=== PATIENT | female | born 1950 | race Caucasian/White ===

== ENCOUNTER 2019-03-19 11:35 | Emergency (ER) | payer OTHER ==
[~2019-03-19] VITALS: Ht 144.8 cm; Wt 74.8 kg
[~2019-03-19 11:35] MED LIST: ACETAMINOPHEN-1 EAC1 PO; ACYCLOVIR 400400 MG PO; ALBUTEROL2.5 MG/0.5 INH; ALBUTEROL2.5 MG/3 M INH; BROVANA15 MCG/2 M INH; LEVAQUIN 500 M500 M2 PO; MORPHINE 00.5 MG/1 M SUBLING; PREDNISONE 20 M20 MG PO; PREDNISONE10 MG PO; PROAIR HFA8.5 GM INH; PULMICORT0.5 MG/22 INH; SINGULAIR 10 MG10 M1 PO; TOBI IH; TOPROL XL25 MG PO; XANAX 0.5 MG0.5 MG PO; XANAX1 MG PO; ZADITOR5 M1
[2019-03-19] MEDS ORDERED: BREO ELLIPTA 11 EACH (11:47)
[2019-03-19] MEDS ORDERED: FLONASE 0.05%50 MCG NASAL (11:47)
[2019-03-19] MEDS ORDERED: ACID CONTROLLER20 MG PO (12:27)
[2019-03-19] MEDS ORDERED: BENADRYL25 MG PO (12:27)
[2019-03-19] MEDS ORDERED: PREDNISONE 10 M10 MG PO (12:27)
[2019-03-19] MEDS ORDERED: AZITHROMYCIN500 MG PO (12:28)
[2019-03-19 12:48] LABS: ABSOLUTE BASOPHILS 0.1 thou/uL (0.0-0.2); ABSOLUTE EOSINOPHILS 0.3 thou/uL (0.0-0.7); ABSOLUTE LYMPHOCYTES 2.4 thou/uL (0.8-5.3); ABSOLUTE MONOCYTES 0.8 thou/uL (0.0-1.2); ABSOLUTE NEUTROPHILS 4.8 thou/uL (1.6-8.1); BASOPHILS 0.7 %; EOSINOPHILS 3.1 %; HEMATOCRIT 38.6 % (37.0-47.0); HEMOGLOBIN 13.2 gm/dL (12.0-15.0); LYMPHOCYTES 28.7 %; MCH 29.2 pg (26.0-34.0); MCHC 34.3 g/dL (28.0-37.0); MCV 85.3 fL (80.0-100.0); MONOCYTES 9.2 %; MPV 7.1 fl. (7.2-11.1); NUCLEATED RBCS 0 /100WBC; PLATELET COUNT* 257 thou/uL (150-400); POLYS 58.3 %; RBC 4.53 mil/uL (4.20-5.00); RDW-CV 13.3 % (10.5-14.5); WBC 8.3 thou/uL (4.0-11.0)
[2019-03-19 12:57] LABS: ANION GAP 10 mmol/L (7-16); BUN 10 mg/dL (7-18); CALCIUM 8.8 mg/dL (8.5-10.1); CHLORIDE 106 mmol/L (98-107); CO2 24 mmol/L (21-32); CREATININE 0.8 mg/dL (0.6-1.3); GLUCOSE 126 mg/dL (70-99); POTASSIUM 3.9 mmol/L (3.5-5.1); SODIUM 140 mmol/L (136-145)
[2019-03-19 12:59] LABS: APTT 26.1 Seconds (25.0-31.3); PROTIME 10.1 Seconds (9.20-11.50)
[2019-03-19 13:07] LABS: TROPONIN-I LEVEL <0.06 ng/mL (<0.06)
[2019-03-19 13:31] VITALS: BP 137/56
--- NOTE | 2019-03-20 11:16 | EKG ---
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
== END 2019-03-19 13:31 | disposition home or self-care (01) ==
LOC: M.ERS 11:35
PROVIDERS: Nurse Practitioner Family
DX: J44.1 Chronic obstructive pulmonary disease with (acute) exacerbation (principal); D69.0 Allergic purpura; T78.40XA Allergy, unspecified, initial encounter; F41.9 Anxiety disorder, unspecified; F17.210 Nicotine dependence, cigarettes, uncomplicated; Z98.51 Tubal ligation status; Z90.49 Acquired absence of other specified parts of digestive tract; Z88.8 Allergy status to other drugs, medicaments and biological substances; X58.XXXA Exposure to other specified factors, initial encounter

== ENCOUNTER 2019-06-25 10:56 | Emergency (ER) | payer MEDICARE ==
[~2019-06-25] VITALS: Ht 144.8 cm; Wt 74.8 kg
[~2019-06-25 10:56] MED LIST changes: +ACID CONTROLLER20 MG PO; +AZITHROMYCIN500 MG PO; +BENADRYL25 MG PO; +BREO ELLIPTA 11 EACH; +FLONASE 0.05%50 MCG NASAL; +PREDNISONE 10 M10 MG PO
[2019-06-25] MEDS ORDERED: IPRAT-ALBUT 0.5-3 ML (11:14)
[2019-06-25] MEDS ORDERED: NORCO 5-325 TA1 EAC1 PO (11:31)
[2019-06-25] MEDS ORDERED: PREDNISONE 20 M20 M1 PO (12:48)
== END 2019-06-25 12:52 | disposition home or self-care (01) ==
LOC: M.ERS 10:56
DX: S20.212A Contusion of left front wall of thorax, initial encounter (principal); J44.9 Chronic obstructive pulmonary disease, unspecified; F41.9 Anxiety disorder, unspecified; Z90.89 Acquired absence of other organs; F17.210 Nicotine dependence, cigarettes, uncomplicated; Z88.6 Allergy status to analgesic agent; W18.39XA Other fall on same level, initial encounter; Y92.89 Other specified places as the place of occurrence of the external cause; Y93.89 Activity, other specified

== ENCOUNTER 2019-06-25 19:30 | Inpatient (IN) | payer MEDICARE ==
[~2019-06-25] VITALS: Ht 144.8 cm; Wt 75.7 kg
[~2019-06-25 19:30] MED LIST changes: -BREO ELLIPTA 11 EACH; +BREO ELLIPTA 11 EACH INH; +IPRAT-ALBUT 0.5-3 ML INH; +NORCO 5-325 TA1 EAC1 PO; +PREDNISONE 20 M20 M1 PO
[2019-06-25 19:32] VITALS: BP 180/83
[2019-06-25 20:48] LABS: HEMATOCRIT 40.9 % (37.0-47.0); MCH 28.8 pg (26.0-34.0); MCHC 34.2 g/dL (28.0-37.0); MCV 84.3 fL (80.0-100.0); NUCLEATED RBCS 0 /100WBC; PLATELET COUNT* 303 thou/uL (150-400); RBC 4.85 mil/uL (4.20-5.00); RDW-CV 13.3 % (10.5-14.5); WBC 16.8 thou/uL (4.0-11.0)
[2019-06-25 20:59] LABS: CALCIUM 8.6 mg/dL (8.5-10.1); CREATININE 0.7 mg/dL (0.6-1.3); POTASSIUM 4.1 mmol/L (3.5-5.1)
[2019-06-25 21:04] LABS: ALBUMIN 3.8 g/dL (3.4-5.0); TOTAL BILIRUBIN 0.5 mg/dL (<0.1-1.0); TOTAL PROTEIN 7.6 g/dL (6.4-8.2)
[2019-06-25 22:02] LABS: ABSOLUTE BASOPHILS 0.2 thou/uL (0.0-0.2); ABSOLUTE LYMPHOCYTES 0.3 thou/uL (0.8-5.3); ABSOLUTE MONOCYTES 0.5 thou/uL (0.0-1.2); ABSOLUTE NEUTROPHILS 15.8 thou/uL (1.6-8.1)
[2019-06-25 22:03] LABS: PLATELET ESTIMATE ADEQUATE
[2019-06-25 22:33] VITALS: BP 152/78
[2019-06-26 01:25] LABS: URINE BILIRUBIN NEGATIVE (Negative); URINE BLOOD 1+ (Negative); URINE CLARITY CLEAR; URINE COLOR YELLOW; URINE GLUCOSE-RANDOM NEGATIVE (Negative); URINE KETONES 1+ (Negative); URINE LEUKOCYTES-REFLEX NEGATIVE (Negative); URINE NITRITE-REFLEX NEGATIVE (Negative); URINE PROTEIN 1+ (Negative); URINE SPECIFIC GRAVITY 1.025 (1.005-1.030); URINE UROBILINOGEN 0.2 E.U./dl (0.2-1.0)
[2019-06-26 01:53] LABS: CASTS None Seen /LPF (None Seen); SQUAMOUS 0-3 Few /LPF (0-3)
[2019-06-26 01:54] LABS: BACTERIA-REFLEX >30 Many /HPF (None Seen); CRYSTALS None Seen /LPF (None Seen); URINE RBC 0-2 Rare /HPF (0-2); URINE WBC-REFLEX 0-5 Rare /HPF (0-5)
--- NOTE | 2019-06-26 06:29 | NUR ---
RECEIVED REPORT AND ASSUMED CARE AT 2240. PT TRANSPORTED FROM ED TO ROOM 111. ADMISSION AND ASSESSMENT COMPLETED CHARTED. BED LOCKED IN LOWEST POSITION, CALL LIGHT WITHIN REACH. BED ALARM ON. MED REC COMPLETED.
[2019-06-26 08:08] VITALS: BP 161/71
--- NOTE | 2019-06-26 16:50 | NUR ---
PT A&Ox4. VITALS STABLE. IV PATENT. UP WITH 1 USING WALKER. ON 2LOX, ALSO ON OX AT HOME. PAIN PARTIALLY CONTROLLED WITH FENTANYL AND TRAMADOL. TRANSDERM PATCH BEHIND RIGHT EAR FOR NAUSEA. ENCOURAGED TO SIT UP IN CHAIR AND IN BED, REFUSES AT TIMES. CALL LIGHT WITHIN REACH. FALL PRECAUTIONS IN PLACE. WILL CONTINUE TO MONITOR.
[2019-06-26 17:13] VITALS: BP 158/76
[2019-06-26 21:05] VITALS: BP 164/73
[2019-06-27 00:35] VITALS: BP 154/65
[2019-06-27 02:06] LABS: GLYCOHEMOGLOBIN (HGB A1C) 5.2 % (4.8-5.6)
--- NOTE | 2019-06-27 05:12 | NUR ---
VSS ON 2L. MEDS GIVEN ORDERED. PAIN MANAGED WITH FENTANYL AND SCHEDULED TRAMADOL. PT DIDNT WANT TO TAKE NORCO BECAUSE IT MAKES HER SICK TO HER STOMACH SHE SAID. BENEDRYL GIVEN FOR SLEEP PER PT REQUEST. UP TO BSC WITH MODERATE ASSIST. HOURLY ROUNDS COMPLETED. WILL CONTINUE TO MONITOR.
[2019-06-27 07:40] VITALS: BP 157/86
--- NOTE | 2019-06-27 16:52 | NUR ---
cm completed assessment to discuss d/c planning. pt lives w/dtr, Mohini. pt states Mohini is unemployed, so she is c/g for pt and helps w/adls. pt has walker, but only uses if late at night and pt "stays up past my bedtime." pt has used hh in the past, but has no recollection of which agency. pt has no hx w/snf. pt has good support at home. cm will cont to follow to help as needed.
--- NOTE | 2019-06-27 17:39 | NUR ---
PT REMIANED ALERT AND ORIENTED. PAIN MEDS GIVEN ORDERED. PT UP FOR MEALS AND REQUESTED. FALL RISK PRECAUTIONS IN PLACE. HOURLY ROUNDING COMPLETED. WILL CONTINUE TO MONITOR.
[2019-06-27 20:00] VITALS: BP 143/69
--- NOTE | 2019-06-28 04:41 | NUR ---
A&O X 4, FORGETFUL AT TIMES. PT ON 2L O2 BY NC. MEDS GIVEN ORDERED. PAIN PARTIALLY CONTROLLED WITH NORCO AND SCHEDULED TRAMADOL. FLEXERIL GIVEN PER PT REQUEST FOR SPASMS. UP TO BSC WITH MODERATE ASSIST. HOURLY ROUNDS COMPLETED. WILL CONTINUE TO MONITOR.
[2019-06-28 05:17] LABS: HEMATOCRIT 36.9 % (37.0-47.0); HEMOGLOBIN 12.5 gm/dL (12.0-15.0); MCH 28.9 pg (26.0-34.0); MCV 85.1 fL (80.0-100.0); MPV 7.4 fl. (7.2-11.1); RBC 4.33 mil/uL (4.20-5.00); RDW-CV 13.4 % (10.5-14.5); WBC 8.4 thou/uL (4.0-11.0)
[2019-06-28 05:52] LABS: CALCIUM 8.9 mg/dL (8.5-10.1); CREATININE 0.6 mg/dL (0.6-1.3); POTASSIUM 3.9 mmol/L (3.5-5.1)
[2019-06-28 07:25] VITALS: BP 184/101
--- NOTE | 2019-06-28 17:43 | NUR ---
PT ALERT AND ORIENTED AND FORGETFUL. PT HALLUCINATING TOWARDS END OF SHIFT. PAIN MEDS GIVEN ORDERED. FALL RISK PRECAUTIONS IN PLACE. HOURLY ROUNDING COMPLETED. WILL CONTINUE TO MONITOR.
[2019-06-28 21:00] VITALS: BP 157/88
--- NOTE | 2019-06-29 05:03 | NUR ---
PT A&O X 3-4, CONFUSED AT TIMES. MEDS GIVEN ORDERED. PT ON 2L O2 BY NC, Q4H BREATHING TREATMENT. PAIN MANAGED WITH TRAMADOL. UP TO BSC WITH MINIMUM ASSIST. HOURLY ROUNDING COMPLETED. WILL CONTINUE TO MONITOR.
[2019-06-29 09:15] VITALS: BP 172/92
[2019-06-29 16:00] VITALS: BP 178/77
--- NOTE | 2019-06-29 16:18 | NUR ---
CALLED DAUGHTER,JN,EARLIER TO SEE IF SHE FELT COMFORTABLE TAKING CARE OF HER MOM WHEN SHE CAME HOME. OFFEREDED HER SNF BUT DID TELL HER PTS PAIN SEEMED TO BE BETTER AND WALKED 120 FT WITH THERAPY TODAY. SHE WANTED ME TO CALL PTS MARGARET MURPHY. SHE IS HER DPOA AND LIVES 2 DOORS DOWN FROM PT.AND PTS DAUGHTER. HAD TO LEAVE FOR MARGARET.
--- NOTE | 2019-06-29 19:00 | NUR ---
PATIENT ALERT AND ORIENTED TO SELF AND PLACE THIS AM. COOPERATIVE W/ ASSESS AND CARES. BECOMES MORE WHEEZY AND DISORIENTED TOWARDS EVENING. PATIENT HAVING HALLUCINATIONS OF PEOPLE WHO AREN'T THERE. DR NOTIFIED, ORDERS REC'D. O2 2L/NC. IV SITE NOTED WNL. PATIENT RESTING IN BED AT THIS TIME. BED ALARM ON. CALL LIGHT IN REACH. PERSONAL BELONGINGS WITHIN REACH. DTR AND GRANDDTR IN TO SEE PATIENT THIS AFTERNOON, STATE PATIENT HAS NEVER BEEN THIS CONFUSED BEFORE. HRLY ROUNDS DONE. ~TJRN
[2019-06-29 20:30] VITALS: BP 163/80
[2019-06-29 20:35] LABS: PCO2 42.9 mmHg (35.0-45.0); PO2 76.2 mmHg (75.0-100.0); pH 7.428 (7.340-7.450)
--- NOTE | 2019-06-29 21:52 | NUR ---
ABG TEST RESULTS 20:37 UNREMARKABLE. PT HAS 2L-NC AND RESPIRATORY HAS GIVEN SCHEDULED ALBUTEROL/WILL MONITOR O2 CLOSELY
--- NOTE | 2019-06-30 05:50 | NUR ---
PATIENT RECEIVED SCHEDULED BREATHING TREATMENTS AND TRAMADOL. INCREASED CONFUSION THROUGHOUT SHIFT. RESPIRATORY SAW Q3 AND WE ENCOURAGED USE OF INCENTIVE SPIROMETER BUT WITH THE CONFUSION SHE WAS NOT ABLE TO RESPOND. ABG TEST AND XRAY SHOWS NO ACUTE CHANGES BUT THE IMAGE OF THE XRAY DID SHOW SOME FLUID BUILD UP ON LEFT LUNG. PATIENT ABLE TO AMBULATE TO COMMODE WITH ASSISTANCE. SHE IS FORGETFUL AND CONFUSED AND HAS TO BE REORIENTED OFTEN. SHE DID NOT SLEEP MUCH THROUGH THE EVENING. WHEEZING HAS INCREASED WELL. SHE WAS CHECKED 2-3 TIMES PER HOUR AND WE MADE SURE HER O2 REMAINED ON AT 2L.
[2019-06-30 09:00] VITALS: BP 163/75
--- NOTE | 2019-06-30 10:04 | NUR ---
PATIENT ESCORTED OFF UNIT PER BED W/ O2/NC AND IV ANTIBIOTICS INFUSING, TO TELE. REPORT GIVEN TO LEAD SALES CONSULTANT. PATIENT CONTINUES TO HAVE INCREASED CONFUSION AND HALLUCINATIONS. FAMILY MEMBERS NOTIFIED OF POC. FAMILY AGREEABLE TO POC. ~TJRN
[2019-06-30 10:10] VITALS: BP 168/88
--- NOTE | 2019-06-30 10:49 | NUR ---
RECEIVED REPORT FROM SHAWNA IN [facility]. PT ARRIVED TO TELE FLOOR AROUND 1010, ASSUMED CARE. FLATWORK ASSEMBLER PLACED TRACING SR. VITALS CHARTED. PT A BIT TACHYPNEIC; WHEEZING THROUGHOUT AND CONGESTED. DR GONZALES IN ROOM, PLAN IS TO START BIPAP. THIS RN AGREES WITH THE ASSESSMENT AND CHARTING OF SHAWNA FIELD. PT AWAKE, ALERT, ORIENTED TO SELF, MONTH AND YEAR ONLY. PT REPORTS THAT SHE IS HALLUCINATING. PT IS IMPULSIVE. BED ALARM AND FALL PRECAUTIONS IN PLACE. HOURLY ROUNDING PERFORMED. CALL LIGHT IS WITHIN REACH. WCTM.
[2019-06-30 11:24] LABS: BE 1.6 mmol/L (-2 to +3); pH 7.416 (7.340-7.450)
[2019-06-30 11:55] LABS: PO2 219.5 mmHg (75.0-100.0)
[2019-06-30 12:28] VITALS: BP 185/93
[2019-06-30 12:28] LABS: CALCIUM 8.8 mg/dL (8.5-10.1); CREATININE 0.8 mg/dL (0.6-1.3)
[2019-06-30 16:00] VITALS: BP 166/75
[2019-06-30 19:20] VITALS: BP 148/78
[2019-07-01] VITALS: BP 157/82
--- NOTE | 2019-07-01 01:18 | NUR ---
INITAL ASSESMENT COMPLETED AT 0. PT CONFUSED, RESTLESS AND IMPULSIVE. BED ALARMING CONTINUALLY. PT UNABLE TO UNDERSTAND OR REMEMBER INSTRUCTIONS. PT SEEING THINGS THAT ARE NOT PRESENT. RECIEVED ORDER FOR ONE TO ONE SITTER AT BEDSIDE FOR PT SAFETY. TECH IN ROOM WITH PT AT BEDSIDE.
[2019-07-01 04:00] VITALS: BP 169/88
[2019-07-01 08:30] VITALS: BP 169/64
[2019-07-01 12:11] VITALS: BP 158/84
[2019-07-01 18:19] LABS: URINE BILIRUBIN NEGATIVE (Negative); URINE BLOOD TRACE (Negative); URINE CLARITY CLEAR; URINE COLOR YELLOW; URINE GLUCOSE-RANDOM NEGATIVE (Negative); URINE KETONES NEGATIVE (Negative); URINE LEUKOCYTES-REFLEX NEGATIVE (Negative); URINE NITRITE-REFLEX NEGATIVE (Negative); URINE PROTEIN NEGATIVE (Negative); URINE SPECIFIC GRAVITY >= 1.030 (1.005-1.030); URINE UROBILINOGEN 0.2 E.U./dl (0.2-1.0)
--- NOTE | 2019-07-01 19:30 | CON ---
[address] [address] CONSULTATION Name: KENDRA GARCIA Room: [address] IN M.R.#: [id number] Admission: 06/25/19 Attend Phys: Chandrakant Zendejas MD Discharge: Date of : 48 Report #: [id number] THIS REPORT FOR: //name// CC: Chandrakant Zendejas [facility] physician/PCP DATE OF SERVICE: 06/30/2019 I was asked to see this 68-year-old lady for acute respiratory failure. HISTORY OF PRESENT ILLNESS: She does have history of 97-afop-olyu smoking, continues to smoke a few cigarettes per day. She is not on oxygen, but she states that she has been on BiPAP, which was started by [facility]. She has never had a sleep study. She does use her BiPAP at night with oxygen. She is not on oxygen during day. She fell on 06/25, presented to the Emergency Room, had a CT of the chest done, which did show minimally displaced fractures involving the lateral left 6th, 7th and 8th ribs. She presented to the Emergency Room on 06/28 with increased shortness of breath, wheezing, back pain. She was in rehab was transferred to telemetry today. She has had increased shortness of breath and wheezing. She has cough with some sputum production. She has gastroesophageal reflux symptoms and nasal congestion. PAST MEDICAL HISTORY: COPD, suspect she has severe COPD, that is why she is on BiPAP, obstructive sleep apnea-hypopnea syndrome, rib fracture as mentioned as above, status post recent fall and anxiety. ALLERGIES: LORAZEPAM. MEDICATIONS: Currently, she is on azithromycin, Rocephin, Solu-Medrol 62.5 mg b.i.d., metoprolol, Xopenex, DuoNeb, montelukast, Lovenox, Pulmicort, Brovana, Ultram, tramadol, Protonix, MiraLax. SOCIAL HISTORY: History of 28-xmza-mliq smoking, continues to smoke a few cigarettes per day. FAMILY HISTORY: Hypertension. REVIEW OF SYSTEMS: As mentioned as above, other systems otherwise negative. PHYSICAL EXAMINATION: GENERAL: This is an obese lady. VITAL SIGNS: Her O2 saturation on 2 liters of oxygen is 96%, respiratory rate 24, heart rate 90, blood pressure 168/88, temperature 36.3. HEENT: Normocephalic, atraumatic. Pupils equal, round, reactive to light. There is shallow oropharynx. Nose is clear. NECK: There is no lymphadenopathy [place] [address] CONSULTATION Name: KENDRA GARCIA Room: [address] M.R.#: [id number] Admission: 06/25/19 Attend Phys: Chandrakant Zendejas MD Discharge: Date of : 48 Report #: [id number] CARDIOVASCULAR: Regular rate and rhythm. PMI is nondisplaced. CHEST: On inspection, she appears tachypneic. She has bilateral end expiratory wheezing, a few bibasilar crackles, dullness at the bases. ABDOMEN: Soft. Bowel sounds are good. There is no mass. EXTREMITIES: There is no edema. LYMPHATICS: There is no lymphadenopathy. NEUROLOGIC: She is alert and oriented. SKIN: Chronic changes. LABORATORY DATA: I reviewed the following lab data: CT of the chest as mentioned as above. Chest x-ray done last night did not show infiltrate noted on 06/25, her WBC was 16.8. On admission, WBC 8.4, hemoglobin 12.5, platelet 265. Her ABG on 06/29, pH 7.42, pCO2 of 42, pO2 of 76 on 2 liters of oxygen. On 06/28, sodium 139, potassium 2.9, chloride 102, CO2 of 27, glucose 170, BUN 10, creatinine 0.6. Lactic acid 1.7. Troponin less than 0.06. BNP 52. IMPRESSION: 1. Acute respiratory failure secondary to acute exacerbation of chronic obstructive pulmonary disease, acute bronchitis versus others. 2. Acute exacerbation of chronic obstructive pulmonary disease. 3. Acute bronchitis. 4. Status post fall with rib fractures. 5. Obstructive sleep apnea-hypopnea syndrome. 6. Obesity. PLAN AND RECOMMENDATIONS: 1. Titrate FiO2 to keep O2 saturation 91%. 2. Bronchodilator. 3. Inhaled corticosteroid. 4. I will increase Solu-Medrol to 62.5 mg every 8 hours. 5. Stat ABG now, then start BiPAP until her respiratory status is more stable. 6. Continue antibiotic. 7. I will do BMP and BNP. 8. Monitor respiratory status very closely. 9. The findings and recommendations were discussed with RN and the patient. I have answered all of the patient's questions. She understood and agreed to proceed with the plan. Thank you very much for allowing me to participate in care of this very nice lady. <ELECTRONICALLY SIGNED> By: Marely Chua MD 07/01/190 1105 0127Marely Chua MD /nt
[2019-07-01 19:40] LABS: CALCIUM 8.8 mg/dL (8.5-10.1); CREATININE 0.8 mg/dL (0.6-1.3)
[2019-07-01 20:00] VITALS: BP 163/71
--- NOTE | 2019-07-01 20:00 | NUR ---
ASSUSMED CARE OF PT APPROX 0730. PT CARE DISCUSSED WITH RESPIRATORY THIS MORNING. PT WAS ON BIPAP THIS MORING. PT WAS CONFUSED THIS SHIFT AND WAS HAVING HALLUCINATIONS. PT PLACED ON BIPAP WHILE SLEEPING THIS SHIFT. PTS FAMILY WAS IN THIS AFTERNOON AND WANTED TO DISCUSS PTS CARE. PTS FAMILY WAS UPSET WITH PT CARE AND WAS WANTING TO KNOW WHAT WAS BEING DONE FOR THE PT TO GET BETTER, CARE WAS DISCUSSED WITH FAMILY. FAMILY HAD COMPLAINTS ABOUT CARE TO RESPITORY AND SAID THEY WANTED THE PT TO BE TRANSFERED TO A DIFFERENT HOSPITAL. THE DR WAS NOTIFIED AND THE PTS FAMILY SPOKE TO THE DOCTOR VIA TELEPHONE. ORDERS WHERE PLACED FOR THE PT. PTS FAMILY HAD NO MORE COMPLAINTS AFTER SPEAKING TO THE DOCTOR. PT WAS STRAIGHT CATHED THIS EVENING FOR UA. PTS FAMILY BACK THIS EVENING WITH DINNER FOR THE PT. SAFTEY PRECAUTIONS UTILIZED AND HOURLY ROUNDED.
[2019-07-02 00:11] VITALS: BP 121/70; BP 173/76
[2019-07-02 03:56] VITALS: BP 122/56
[2019-07-02 05:16] LABS: HEMATOCRIT 35.4 % (37.0-47.0); HEMOGLOBIN 12.2 gm/dL (12.0-15.0); MCH 29.4 pg (26.0-34.0); MCHC 34.5 g/dL (28.0-37.0); MCV 85.3 fL (80.0-100.0); MPV 6.9 fl. (7.2-11.1); RBC 4.16 mil/uL (4.20-5.00); RDW-CV 13.4 % (10.5-14.5); WBC 8.1 thou/uL (4.0-11.0)
[2019-07-02 05:44] LABS: CALCIUM 8.2 mg/dL (8.5-10.1); CREATININE 0.7 mg/dL (0.6-1.3); MAGNESIUM 2.2 mg/dL (1.8-2.4); POTASSIUM 4.2 mmol/L (3.5-5.1)
--- NOTE | 2019-07-02 06:50 | NUR ---
ASSUMED CARE OF PT AFTER REPORT AT 1930. PT A&OX4. CONFUSED & FORGETFUL AT TIMES. PT WITH EPISODE OF VISUAL HALLUCINATION- SAW PEOPLE IN THE ROOM. PT ON O2 AT 2L NC/BIPAP WHEN SLEEPING. PT TRACING SR ON TELE. PT UP WITH 1 ASSIST TO BSC. PT COMPLAINED OF BACK PAIN-MEDS GIVEN PER AUG. PT ABLE TO SLEEP WELL ON BED. CALL LIGHT WITHIN REACH.
[2019-07-02 08:00] VITALS: BP 167/92
[2019-07-02 12:34] VITALS: BP 153/81
--- NOTE | 2019-07-02 15:49 | NUR ---
ASSUSSMED CARE OF PT APPROX 0730. REASSESSMENT COMPELTED CHARTED. MEDICATIONS GIVEN CHARTED. PT HAD A SHOWER THIS AM. LINENS CHANGED. PT ON BIPAP INTERMITTENTLY. PT FAMILY AT BEDSIDE THIS AM. PT UP TO BEDSIDE CAMODE WITH STAND BY ASSIST. THERAPY WORKED WITH PT THIS AFTERNOON. PT IN BED, SAFTEY PRECAUTIONS IN PLACE, HOURLY ROUNDING.
[2019-07-02 16:09] VITALS: BP 146/74
[2019-07-02 20:00] VITALS: BP 162/83
[2019-07-03] VITALS: BP 149/71
[2019-07-03 03:31] VITALS: BP 160/72
--- NOTE | 2019-07-03 06:21 | NUR ---
ASSUMED CARE OF PT AFTER REPORT AT 1930. PT A&OX2. NOT ORIENTED TO SELF & SITUATION, CONFUSED & FORGETFUL AT TIMES. PTS HAVING VISUAL HALLUCINATION. TRYING TO REACH SOMETHING IN THE AIR. PT ON O2 AT 2L NC/BIPAP WHEN SLEEPING. PT TRACING SR ON TELE. PT UP WITH 2 ASSIST TO BSC. PT COMPLAINED OF LEFT RIB PAIN-MEDS GIVEN PER AUG. PT ABLE TO SLEEP WELL ON BED. FALL PRECAUTIONS IN PLACE. CALL LIGHT WITHIN REACH.
[2019-07-03 12:15] VITALS: BP 132/58
--- NOTE | 2019-07-03 12:56 | NUR ---
Nutrition: Pt admitted with Lt rib FX. H/o COPD. Seen for LOS. Regular diet. Albumin 3.8. Low nutrition risk.
[2019-07-03 16:00] VITALS: BP 178/84
--- NOTE | 2019-07-03 19:15 | NUR ---
ASSUMED PT CARE AT 0700, PT A&O X3-4 WITH FORGETFULNESS, DELUSIONS, AND HALLUCINTAIONS AT TIME THOUGH PT IS AWARE SHE IS HAVING THEM. PT EDUCATED ON USING PILLOW FOR SPLINT TO FX RIBS WHEN MOVING/COUGHING, TOLERATING WELL. CONT ON IV ABTS, UP WITH ASSIST X1, VSS, REMAINS ON 2LPM VIA NC, LS DIMINISHED THROUGHOUT, ASSOCIATE JAVA DEVELOPER TRACING SINUS RHYTHM, FULL ASSESSMENT CHARTED, HOURLY ROUNDING COMPLETED.
[2019-07-03 20:00] VITALS: BP 147/68
[2019-07-04 00:18] VITALS: BP 136/77
[2019-07-04 04:32] VITALS: BP 151/87
--- NOTE | 2019-07-04 05:29 | NUR ---
ASSUMED CARE OF PT AFTER REPORT AT 1930. PT A&OX4. CONFUSED & FORGETFUL AT TIMES. VSS. PHYSICAL ASSESSMNENR COMPLETED AND CHARTED. PT ON O2 AT 2L NC/BIPAP WHEN SLEEPING. PT UP WITH 2 ASSIST TO BSC. PT COMPLAINED OF LEFT RIB PAIN-MEDS GIVEN PER AUG. PT ABLE TO SLEEP WELL ON BED. CALL LIGHT WITHIN REACH. FALL PREACUTIONS IN PLACE.
[2019-07-04 11:31] VITALS: BP 132/56
--- NOTE | 2019-07-04 11:37 | NUR ---
Spoke with Pt's granddtr/DPOA, family is leaning more towards taking Pt home with HH, family to discuss today and let CM know. Pt will have someone with her 24hrs/day and family is use to assisting with ADLs. Awaiting call back and decision regarding dispo. Following.
[2019-07-04 17:16] VITALS: BP 129/61
--- NOTE | 2019-07-04 18:42 | NUR ---
ASSUMED PT CARE AT 0700, PT A&O X3-4, IMPULSIVE AND FORGETFUL, PT CONT TO HAVE HALLUCINATIONS/DELUSIONS, VSS, REMAINS ON O2 AT 2LPM VIA NC, LS DIMINISHED WITH WHEEZING THROUGHOUT, GRAIN ELEVATOR CLERK TRACING SINUS RHYTHM, FULL ASSESSMENT CHARTED, HOURLY ROUNDING COMPLETED.
[2019-07-04 20:00] VITALS: BP 143/73
[2019-07-05 00:01] VITALS: BP 150/59
[2019-07-05 04:16] VITALS: BP 170/70
--- NOTE | 2019-07-05 05:53 | NUR ---
ASSUMED CARE FO PT AFTER REPORT AT 1930. PT A&OX4 BUT CONFUSED, IMPULSIVE AND RESTLESS. VSS. PHYSICAL ASSESSMENT COMPLETED AND CHARTED. PT ON O2 AT 2L NC. REFUSED BIPAP EVEN AFTER EDUCATION. PT WANTS TO GO HOME AND SMOKE. OFFERED NICOTINE PATCH BUT REFUSED. PT COMPLAINED OF LEFT RIB PAIN-MEDS GIVEN PER AUG. FALL PREACUTIONS IN PLACE. CALL LIGHT WITHIN REACH.
[2019-07-05 12:15] VITALS: BP 149/73
--- NOTE | 2019-07-05 13:01 | NUR ---
[facility] is now wanting Pt to go skilled. Faxed referral to [facility] and requested that they initiate auth if they are able to accept Pt. Pt medically stable to [facility].
[2019-07-05 16:00] VITALS: BP 144/64
--- NOTE | 2019-07-05 19:00 | NUR ---
ASSUMED PT CARE AT 0700, PT A&O X3, FORGETFUL AND VERY IMPULSIVE. PT CONT TO CLIMB OUT OF BED DISPITE EDUCATION ON FALLING AND USING CALL LIGHT. REMAINS ON RA, VSS, MED SURG STATUS. FAMILY NOTIFIED ON PTS BEHAVIOR, AGREED TO HAVE PT GO TO SNF FOR REHAB AND SAFETY. PT IS UP WITH ASSIST X1 SHE IS VERY UNSTEADY ON HER FEET, FULL ASSESSMENT CHARTED.
[2019-07-05 20:00] VITALS: BP 145/89
[2019-07-05 23:42] VITALS: BP 180/78
[2019-07-06 03:00] VITALS: BP 168/80
--- NOTE | 2019-07-06 06:01 | NUR ---
ASSUMED CARE OF PT AFTETR REPORT AT 1930. PT A&OX1. CONFUSED, FORGETFUL & IMPULSIVE. VSS. PHYSICAL ASSESSMENT COMLPETED AND CHARTED. PT ON O2 AT 2L NC. PT REFUSED BIPAP EVEN AFTER EDUCATION. PT UP WITH 1-2 ASSIST TO BSC. PT COMPLAINED OF LEFT RIB PAIN-MEDS GIVEN PER MAR. CALL LIGHT WITHIN REACH.
[2019-07-06 08:00] VITALS: BP 139/58
--- NOTE | 2019-07-06 08:31 | NUR ---
Faxed updated therapy notes to [facility], continue to await decision to accept and insurance auth
--- NOTE | 2019-07-06 13:47 | NUR ---
PT IS A/O X3 AND CONFUSED/FORGETFUL.PT IS HAVING VISUAL HALLUCINATIONS.VSS.MED-SURG STATUS.PT REMAINS ON 2L O2 NC.PT PROGRESSING TOWARDS GOALS.PAIN MANAGED WELL WITH PO MEDICATIONS.IV ANTIBIOTICS GIVEN.PT WORKED WITH PHYSICAL THERAPY AND SAT UP IN CHAIR.HOURLY ROUNDING COMPLETED FOR PT SAFETY.CALL LIGHT AND FALL PRECAUTIONS IN PLACE.WILL CONTINUE TO MONITOR.PT TO TRANSFER TO 314.REPORT CALLED TO UNIT.
--- NOTE | 2019-07-06 15:17 | NUR ---
PATIENT TRANSFERRED FROM [facility] TO ROOM 314. REPORT RECEIVED FROM RASHIDA CAMPOS. [address] AGREE WITH CHARTED AM ASSESSMENT. IV SL. NO COMPLAINTS AT THIS TIME. UP TO BSC WITH ASSISTANCE. BED ALARM ON FOR PATIENT SAFETY. CALL LIGHT WITHIN REACH.
[2019-07-06 16:37] LABS: HEMATOCRIT 36.4 % (37.0-47.0); HEMOGLOBIN 12.2 gm/dL (12.0-15.0); MCHC 33.6 g/dL (28.0-37.0); MCV 86.2 fL (80.0-100.0); MPV 7.3 fl. (7.2-11.1); NUCLEATED RBCS 0 /100WBC; PLATELET COUNT* 288 thou/uL (150-400); RBC 4.22 mil/uL (4.20-5.00); RDW-CV 13.5 % (10.5-14.5); WBC 11.1 thou/uL (4.0-11.0)
[2019-07-06 16:50] LABS: ALBUMIN 3.1 g/dL (3.4-5.0); CALCIUM 8.1 mg/dL (8.5-10.1); CREATININE 0.8 mg/dL (0.6-1.3); MAGNESIUM 2.1 mg/dL (1.8-2.4); POTASSIUM 5.3 mmol/L (3.5-5.1); TOTAL BILIRUBIN 0.5 mg/dL (<0.1-1.0); TOTAL PROTEIN 6.3 g/dL (6.4-8.2)
[2019-07-06 17:08] LABS: ABSOLUTE LYMPHOCYTES 1.3 thou/uL (0.8-5.3); ABSOLUTE MONOCYTES 0.2 thou/uL (0.0-1.2); ABSOLUTE NEUTROPHILS 9.5 thou/uL (1.6-8.1); PLATELET ESTIMATE ADEQUATE
[2019-07-06 17:49] LABS: ESR (SEDRATE) 8 mm/hr (0-30)
[2019-07-06 19:40] VITALS: BP 158/70
[2019-07-07 05:10] LABS: BE 3.8 mmol/L (-2 to +3); PCO2 41.9 mmHg (35.0-45.0); PO2 76.1 mmHg (75.0-100.0); pH 7.446 (7.340-7.450)
--- NOTE | 2019-07-07 06:23 | NUR ---
PT ORIENTED TO SELF. CONFUSED. FORGETFUL. MEDS GIVEN PER EMAR. VSS ON 2L NC. BIPAP AT HS. NONCOMPLIANT WITH BIPAP. DID NOT WAER IT UP TO AN HOUR THROUGH SHIFT. VISUAL HALLUCINATIONS PRESENT THIS SHIFT. PT WAS RESTLESS. SLEEP MEDS AND XANAX GIVEN THIS SHIFT. DID NOT SEEM TO HAVE ANY EFFECT ON PT. PT DC'D IV. BED CHANGE DONE TWICE. ABG OBTAINED THIS SHIFT. PH, PO2 AND PCO2 WITHIN NORMAL. FALL PRECAUTION IN PLACE. PT ATTEMPTED GETTING OUT OF BED SEVERAL TIMES THIS SHIFT. PER DR MALLOY, OK TO LEAVE OUT IV. CALL LIGHT WITHIN REACH. HOURLY ROUNDINGS MADE.
[2019-07-07 07:50] VITALS: BP 160/80
--- NOTE | 2019-07-07 12:30 | NUR ---
JAVI called and spoke with Thais in admissions at [facility] to follow up on status of pt referral and [facility] still waiting on insurance authorization.
[2019-07-07 16:00] VITALS: BP 172/87
[2019-07-07 16:01] VITALS: BP 172/87
--- NOTE | 2019-07-07 16:24 | NUR ---
NOISE HEARD IN THIS PT ROOM, ON INVESTIGATION PT FOUND ON FLOOR. RAILS UP AND BED ALARM ACTIVATED. CALL LIGHT IN REACH OF PT, BUT WAS NOT USED. WORK ORDER PLACED FOR BED ALARM NOT SOUNDING. PT STATES SHE WAS "SITTING ON THE BENCH". PT STATES SHE STRUCK POSTERIOR HEAD ON BEDSIDE TABLE. NO OBVIOUS DEFORMITIES/WOUNDS NOTED. PT DENIES PAIN. PT NOTES TENDERNESS TO BACK OF HEAD. PT ASSESSED AND VS STABLE. PT ASSISTED BCK TO BED. DR MALLOY NOTIFIED OF INCIDENT. REPORT COMPLETED AND PLACED TO PT CHART. PT NOW RESTS IN BED, CALL LIGHT IN REACH. BED ALARM REPAIRED AND ACTIVE. WILL CONTINUE TO MONITOR.
--- NOTE | 2019-07-07 17:02 | NUR ---
PT AWAKE AND ALERT TO SELF. VSS. DEJA RN PLACED IV TO RFA USING U/S. NO REDNESS/SWELLING AT SITE. PT UP TO RESTROOM SBA TO BEDSIDE COMMODE. CALL LIGHT IN REACH, PT RE-EDUCATED REGARDING USE OF CALL LIGHT FOR ASSISTANCE. PT CONTINUES TO "FORGET" AND ATTEMPTS TO GET UP UNASSISTED. FALL PRECAUTIONS IN PLACE FOR PT SAFETY. PT IS ACCUCHECK, INSULIN NOT INDICATED THIS SHIFT. PT REMAINS ON 2L BY NC. PT GRANDDAUGHTER CALLED THIS AFTERNOON TO CHECK IN. GRANDDGTR STATES PT PREFERS FOOD CUT UP SHE EATS WITH SPOON. PT TO DC TO SNF 07/08/2019. PT REMAINS ON FALL PRECAUTIONS WITH CALL LIGHT IN REACH, IN ROOM WITHIN VIEW OF NURSES STATION. WILL CONTINUE TO MONITOR.
[2019-07-07 23:21] VITALS: BP 149/68
--- NOTE | 2019-07-08 03:45 | NUR ---
PATIENT AWAKE MOST OF THE NIGHT CLIMBING OUT OF BED. PT UNABLE TO BE REDIRECTED. PT SAT IN CHAIR WITH WARM BLANKET AND CHAIR ALARM FOR APPROX 10 MINUTES THEN INSISTED ON LEAVING ROOM. PT PLACED IN W/CHAIR AND BROUGHT TO NURSES STATION. PT SAT WITH STAFF FOR APPROX 15 MIN THEN SAID SHE WAS 'READY TO LEAVE'. PT TAKEN BACK TO BED AND IS SLEEPING AT THIS TIME. PT WITH VISUAL HALLUCINATIONS. PT ON O2 @ 2 LITERS, HAS LOOSE COUGH. FREQUENTLY USED ITEMS AND CALL LIGHT WITHIN REACH. SIDERAILS UPX4 AND BED ALARM ON. FREQUENT OBSERVATIONS MADE. WILL CONTINUE TO MONITOR.
[2019-07-08 08:00] VITALS: BP 135/78
[2019-07-08] MEDS ORDERED: HUMALOG100 UNIT/1 SUBQ (13:50)
[2019-07-08] MEDS ORDERED: PREDNISONE 10 M10 MG PO (13:54)
[2019-07-08] MEDS ORDERED: LIDODERM1 EACH TOP (13:55)
[2019-07-08] MEDS ORDERED: ROCEPHIN 11 GM/1001 IV (13:56)
--- NOTE | 2019-07-08 14:02 | NUR ---
SPOKE TO ANA M AT [facility] RE TRANSFER TODAY. ANA M STATES SHE NEEDS PT MEDICARE NUMBER. ADMISSIONS CALLED FOR NUMBER. NUMBER WRITTEN ON FACE SHEET AND FAXED TO ANA M
--- NOTE | 2019-07-08 14:15 | NUR ---
SPOKE WITH ANA M IN ADMISSIONS. TRANSPORTATION SET UP FOR 1700. REPORT CALLED TO ORIN AT [facility]
[2019-07-08 17:02] VITALS: BP 149/68
[2019-07-08 18:03] VITALS: BP 112/59
== END 2019-07-08 17:20 | DRG 183 ==
LOC: M.ERS 19:30 → M.ORTHSURG 21:41 → M.2W 21:41 → M.TBA-ER 21:41 → M.ORTHSURG 22:43 → M.2W 06-30 10:11 → M.3W 07-06 14:18
PROVIDERS: Internal Medicine; Internal Medicine Pulmonary Disease; Physician Assistant; ADMIT Internal Medicine
PROC: 5A09357 Assistance with Respiratory Ventilation, Less than 24 Consecutive Hours, Continuous Positive Airway Pressure (ICD-10-PCS; principal; 2019-07-01)
PROC: 5A09357 Assistance with Respiratory Ventilation, Less than 24 Consecutive Hours, Continuous Positive Airway Pressure (ICD-10-PCS; 2019-07-02)
PROC: 5A09357 Assistance with Respiratory Ventilation, Less than 24 Consecutive Hours, Continuous Positive Airway Pressure (ICD-10-PCS; 2019-07-03)
PROC: 5A09357 Assistance with Respiratory Ventilation, Less than 24 Consecutive Hours, Continuous Positive Airway Pressure (ICD-10-PCS; 2019-07-04)
PROC: 5A09357 Assistance with Respiratory Ventilation, Less than 24 Consecutive Hours, Continuous Positive Airway Pressure (ICD-10-PCS; 2019-07-05)
PROC: 5A09357 Assistance with Respiratory Ventilation, Less than 24 Consecutive Hours, Continuous Positive Airway Pressure (ICD-10-PCS; 2019-07-06)
DX: S22.42XA Multiple fractures of ribs, left side, initial encounter for closed fracture (principal); J96.21 Acute and chronic respiratory failure with hypoxia; G92 Toxic encephalopathy; R65.11 Systemic inflammatory response syndrome (SIRS) of non-infectious origin with acute organ dysfunction; J44.1 Chronic obstructive pulmonary disease with (acute) exacerbation; E66.2 Morbid (severe) obesity with alveolar hypoventilation; J44.0 Chronic obstructive pulmonary disease with (acute) lower respiratory infection; F41.9 Anxiety disorder, unspecified; J20.9 Acute bronchitis, unspecified; T38.0X5A Adverse effect of glucocorticoids and synthetic analogues, initial encounter; F17.210 Nicotine dependence, cigarettes, uncomplicated; Z68.36 Body mass index [BMI] 36.0-36.9, adult; Z88.8 Allergy status to other drugs, medicaments and biological substances; W18.39XA Other fall on same level, initial encounter; Y93.89 Activity, other specified; Y92.098 Other place in other non-institutional residence as the place of occurrence of the external cause; Y99.8 Other external cause status

== ENCOUNTER 2020-06-27 17:32 | Emergency (ER) | payer MEDICARE ==
[~2020-06-27] VITALS: Ht 157.5 cm; Wt 84.8 kg
[~2020-06-27 17:32] MED LIST changes: +HUMALOG100 UNIT/1 SUBQ; +LIDODERM1 EACH TOP; +ROCEPHIN 11 GM/1001 IV
[2020-06-27 18:17] LABS: ABSOLUTE BASOPHILS 0.1 thou/uL (0.0-0.2); ABSOLUTE EOSINOPHILS 0.1 thou/uL (0.0-0.7); ABSOLUTE LYMPHOCYTES 2.4 thou/uL (0.8-5.3); ABSOLUTE NEUTROPHILS 7.7 thou/uL (1.6-8.1); EOSINOPHILS 0.8 %; HEMATOCRIT 38.5 % (37.0-47.0); HEMOGLOBIN 12.9 gm/dL (12.0-15.0); LYMPHOCYTES 21.3 %; MCH 28.9 pg (26.0-34.0); MCHC 33.5 g/dL (28.0-37.0); MCV 86.4 fL (80.0-100.0); MONOCYTES 9.1 %; MPV 7.1 fl. (7.2-11.1); NUCLEATED RBCS 0 /100WBC; PLATELET COUNT* 266 thou/uL (150-400); POLYS 67.8 %; RBC 4.46 mil/uL (4.20-5.00); WBC 11.3 thou/uL (4.0-11.0)
[2020-06-27 18:21] LABS: URINE BILIRUBIN NEGATIVE (Negative); URINE BLOOD 1+ (Negative); URINE CLARITY CLEAR; URINE COLOR YELLOW; URINE GLUCOSE-RANDOM NEGATIVE (Negative); URINE KETONES NEGATIVE (Negative); URINE LEUKOCYTES-REFLEX TRACE (Negative); URINE NITRITE-REFLEX NEGATIVE (Negative); URINE PROTEIN NEGATIVE (Negative); URINE SPECIFIC GRAVITY 1.025 (1.005-1.030); URINE UROBILINOGEN 0.2 E.U./dl (0.2-1.0)
[2020-06-27 18:42] LABS: SQUAMOUS >10 Many /LPF (0-3)
[2020-06-27 18:43] LABS: CALCIUM 9.2 mg/dL (8.5-10.1); CREATININE 0.7 mg/dL (0.6-1.3); POTASSIUM 4.2 mmol/L (3.5-5.1)
[2020-06-27 18:43] LABS: MUCUS 4-6 Moderate strn/LPF (None Seen); URINE WBC-REFLEX 6-15 Few /HPF (0-5)
[2020-06-27 18:44] LABS: CRYSTALS None Seen /LPF (None Seen); URINE RBC 0-2 Rare /HPF (0-2)
[2020-06-27 18:47] LABS: ALBUMIN 3.6 g/dL (3.4-5.0); TOTAL BILIRUBIN 0.2 mg/dL (<0.1-1.0); TOTAL PROTEIN 6.8 g/dL (6.4-8.2)
[2020-06-27] MEDS ORDERED: HYDROCODON-ACE1 EAC7 PO (20:19)
[2020-06-27] MEDS ORDERED: KEFLEX500 M1 PO (20:19)
[2020-06-27] MEDS ORDERED: PREDNISONE 20 M20 MG PO (21:03)
[2020-06-27] MEDS ORDERED: VISTARIL 25 MG25 M1 PO (21:03)
[2020-06-27 21:15] VITALS: BP 130/67
--- NOTE | 2020-06-28 12:09 | EKG ---
[place] [address] ELECTROCARDIOGRAM REPORT Name: JOSEKENDRA Blankenship Room: [facility]#: [id number] Admission: 06/27/20 Attend Phys: Discharge: 06/27/20 Date of : 48 Date of Service: 06/27/201751 Report #: [id number] THIS REPORT FOR: //name// [facility] ED Test Date: 2020-06-27 Test Time: 17:52:17 Pat Name: KENDRA GARCIA Department: Room: Gender: Estimator Binding: [facility] : 1950 Requested By: Patricio Vera Order Number: [id number] MD: Jeet Solis Measurements Intervals [place] Rate: 95 P: 75 MN: 137 QRS: 22 QRSD: 90 T: 36 QT: 342 QTc: 430 Interpretive Statements Sinus rhythm Probable left atrial enlargement Compared to ECG 03/19/2019 12:45:40 No significant changes Electronically Signed On 06-28-2020 12:09:40 PROFESSOR OF VISUAL ARTS by Jeet Solis [email or web address] <ELECTRONICALLY SIGNED> By: Jeet Solis MD, [facility] 06/28/20 8414 1752 1752 Jeet Solis MD, [facility] /EPI
== END 2020-06-27 21:17 | disposition home or self-care (01) ==
LOC: M.ERS 17:32
PROVIDERS: Physician Assistant
DX: S52.502A Unspecified fracture of the lower end of left radius, initial encounter for closed fracture (principal); Z20.828 Contact with and (suspected) exposure to other viral communicable diseases; S00.83XA Contusion of other part of head, initial encounter; N39.0 Urinary tract infection, site not specified; J44.1 Chronic obstructive pulmonary disease with (acute) exacerbation; F17.210 Nicotine dependence, cigarettes, uncomplicated; Z79.899 Other long term (current) drug therapy; Z88.8 Allergy status to other drugs, medicaments and biological substances; W18.39XA Other fall on same level, initial encounter; Y93.89 Activity, other specified; Y92.89 Other specified places as the place of occurrence of the external cause; Y99.8 Other external cause status

== ENCOUNTER 2020-07-29 17:57 | Inpatient (IN) | payer MEDICARE ==
[~2020-07-29] VITALS: Ht 144.8 cm; Wt 77.1 kg
[~2020-07-29 17:57] MED LIST changes: +HYDROCODON-ACE1 EAC7 PO; +KEFLEX500 M1 PO; +VISTARIL 25 MG25 M1 PO
[2020-07-29 18:00] VITALS: BP 150/97
[2020-07-29 18:50] LABS: ABSOLUTE BASOPHILS 0.1 thou/uL (0.0-0.2); ABSOLUTE EOSINOPHILS 0.2 thou/uL (0.0-0.7); ABSOLUTE LYMPHOCYTES 2.2 thou/uL (0.8-5.3); ABSOLUTE NEUTROPHILS 8.2 thou/uL (1.6-8.1); BASOPHILS 0.8 %; EOSINOPHILS 1.9 %; HEMATOCRIT 39.2 % (37.0-47.0); LYMPHOCYTES 19.2 %; MCH 28.4 pg (26.0-34.0); MCHC 33.2 g/dL (28.0-37.0); MCV 85.8 fL (80.0-100.0); MONOCYTES 8.3 %; MPV 6.8 fl. (7.2-11.1); NUCLEATED RBCS 0 /100WBC; PLATELET COUNT* 261 thou/uL (150-400); POLYS 69.8 %; RBC 4.57 mil/uL (4.20-5.00); RDW-CV 13.7 % (10.5-14.5); WBC 11.7 thou/uL (4.0-11.0)
[2020-07-29 18:59] LABS: CALCIUM 8.4 mg/dL (8.5-10.1); CREATININE 0.8 mg/dL (0.6-1.3); POTASSIUM 3.9 mmol/L (3.5-5.1)
[2020-07-29 19:01] LABS: APTT 24.9 Seconds (25.0-31.3); PROTIME 10.3 Seconds (9.20-11.50)
[2020-07-29 19:15] LABS: ALBUMIN 3.3 g/dL (3.4-5.0); TOTAL BILIRUBIN 0.2 mg/dL (<0.1-1.0); TOTAL PROTEIN 6.4 g/dL (6.4-8.2)
[2020-07-29 23:44] VITALS: BP 134/68
[2020-07-30 04:20] VITALS: BP 133/68; BP 133/80
--- NOTE | 2020-07-30 04:46 | NUR ---
PT ADMITTED TO ROOM 220 AT 0420. PT NPO PER ORDERS. CALL LIGHT IN REACH, PT DEMONSTRATES PROPER USE.
[2020-07-30 05:29] VITALS: BP 133/68
[2020-07-30 08:00] VITALS: BP 133/52
[2020-07-30 11:50] VITALS: BP 130/65
--- NOTE | 2020-07-30 14:13 | NUR ---
CM COMPLETED THE INITIAL ASSESSMENT. PT LIVES W/DTR, JN, AND HER FAMILY. PT STATED SHE IS NEVER LEFT ALONE, DTR WILL HAVE HER OR SON STAY WITH PT IF SHE HAS TO LEAVE. PT IS DEPENDENT W/ADLS, EXCEPT FEEDING. PT HAS WALKER, CANE, HOME O2, SHE THINKS "2 PERCENT." BIPAP AND SHOWER BENCH. PT HAS USED HH IN THE PAST BUT DOESNT RECALL. PT HAS HX W/ IGNITE-SMV. PT ROUNDS: PT WILL REMAIN HOSPITALIZED DT COPD EXACERBATION.
--- NOTE | 2020-07-30 14:32 | 2DMMODE ---
[place] [address] 2 D/M-MODE ECHOCARDIOGRAM Name: KENDRA GARCIA Krzysztof Room: [address] IN [facility]#: [id number] Admission: 07/29/20 Attend Phys: Cedric Chowdary Discharge: Date of : 48 Date of Service: 07/30/20 1431 Report #: [id number] THIS REPORT FOR: cc: Mohini Joshi Michelle RNP Holkins, John M. MD [facility] ~ APPROVED REPORT Study performed: 07/30/2020 10:44:23 EXAM: Comprehensive 2D, Doppler, and color-flow Echocardiogram Patient Location: In-Patient Room #: [facility] Status: routine BSA: 1.66 HR: 103 bpm BP: 133/68 mmHg Rhythm: NSR Other Information Technically limited study due to LIMITED PARASTERNAL VIEWS. Indications Non STEMI Dyspnea 2D Dimensions LVOT Diam: 18.77 (18-24mm) Volumes Left Atrial Volume (Systole) LA ESV Index: 17.10 mL/m2 Aortic Valve AoV Peak Nolan.: 1.80 m/s AO Peak Gr.: 13.00 mmHg LVOT Max P.58 mmHg AO Mean Gr.: 6.84 mmHg LVOT Mean P.16 mmHg LVOT Max V: 1.18 m/s AO V2 VTI: 32.29 cm LVOT Mean V: 0.84 m/s SHANITA (VTI): 2.24 cm2 LVOT V1 VTI: 26.15 cm Mitral Valve E/A Ratio: 0.77 [place] [address] 2 D/M-MODE ECHOCARDIOGRAM Name: KENDRA GARCIA Room: [address]#: [id number] Admission: 07/29/20 Attend Phys: Cedric Chowdary Discharge: Date of : 48 Date of Service: 07/30/20 1431 Report #: [id number] MV Decel. Time: 159.54 ms MV E Max Nolan.: 1.03 m/s MV PHT: 46.27 ms MVA (PHT): 4.76 cm2 TDI E/Lateral E': 11.44 E/Medial E': 14.71 Medial E' Nolan.: 0.07 m/s Lateral E' Nolan.: 0.09 m/s Pulmonary Valve PV Peak Nolan.: 1.20 m/s PV Peak Gr.: 5.74 mmHg Left Ventricle The left ventricle is normal size. There is normal LV segmental wall motion. There is normal left ventricular wall thickness. Left ventricular systolic function is normal. The left ventricular ejection fraction is within the normal range. LVEF is 65%. Grade I - abnormal relaxation pattern. Right Ventricle The right ventricle is normal size. The right ventricular systolic function is normal. Atria The left atrium size is normal. The right atrium size is normal. Aortic Valve Mild aortic valve sclerosis. No aortic regurgitation is present. There is no aortic valvular stenosis. Mitral Valve The mitral valve is normal in structure. Trace mitral regurgitation. No evidence of mitral valve stenosis. Tricuspid Valve The tricuspid valve is normal in structure. Unable to assess PA pressure. Trace tricuspid regurgitation. Pulmonic Valve The pulmonary valve is normal in structure. There is no pulmonic valvular regurgitation. Great Vessels The aortic root is normal in size. IVC [place] [address] 2 D/M-MODE ECHOCARDIOGRAM Name: KENDRA GACRIA Room: [address] IN [facility].#: [id number] Admission: 07/29/20 Attend Phys: Cedric Chowdary Discharge: Date of : 48 Date of Service: 07/30/20 1431 Report #: [id number] collapses >50% with inspiration. Pericardium There is no pericardial effusion. <Conclusion> The left ventricle is normal size. There is normal left ventricular wall thickness. Left ventricular systolic function is normal. The left ventricular ejection fraction is within the normal range. LVEF is 65%. Grade I - abnormal relaxation pattern. The right ventricle is normal size. The left atrium size is normal. Mild aortic valve sclerosis. The mitral valve is normal in structure. The tricuspid valve is normal in structure. IVC is normal in size and collapses >50% with inspiration. There is no pericardial effusion. There is normal LV segmental wall motion. <ELECTRONICALLY SIGNED> By: Brodie Salazar MD, [facility] 07/30/20 1431 1431 1431 Brodie Salazar MD, FACC /INF
[2020-07-30 16:00] VITALS: BP 124/54
--- NOTE | 2020-07-30 18:03 | NUR ---
SHIFT NOTE A/OX4. DENIES PAIN OF DISCOMFORT. STILL HAS SOA AT REST. ON 5L/MIN NC. VSS. NSR. TOLERATES PO. NO CP. CONT ON HEP GTT. NPO AFTER MIDNIGHT FOR HEARTH CATH IN AM. DAUGHTER VISITED. WILL PASS IT ON TO LORETTA RN TO HAVE DIRECTOR OF CARDIOLOGY SERVICE LINE CALL PT'S DAUGHTER WITH RESULTS. PT HAS NO COMPLAINTS. WILL CONT TO MONITOR.
[2020-07-30 18:54] VITALS: BP 124/54
[2020-07-31] VITALS: BP 117/53
[2020-07-31 02:06] LABS: GLYCOHEMOGLOBIN (HGB A1C) 5.3 % (4.8-5.6)
[2020-07-31 04:00] VITALS: BP 133/63
[2020-07-31 04:31] LABS: HEMATOCRIT 34.6 % (37.0-47.0); HEMOGLOBIN 11.6 gm/dL (12.0-15.0); MCH 28.7 pg (26.0-34.0); MCHC 33.4 g/dL (28.0-37.0); MCV 85.9 fL (80.0-100.0); MPV 7.4 fl. (7.2-11.1); RBC 4.03 mil/uL (4.20-5.00); RDW-CV 13.7 % (10.5-14.5); WBC 12.7 thou/uL (4.0-11.0)
[2020-07-31 04:48] LABS: BE 0.8 mmol/L (-2 to +3); pH 7.363 (7.340-7.450)
[2020-07-31 04:50] LABS: PO2 44.5 mmHg (75.0-100.0)
[2020-07-31 06:56] LABS: ALBUMIN 3.3 g/dL (3.4-5.0); ALKALINE PHOSPHATASE 66 U/L (46-116); ANION GAP 11 mmol/L (7-16); BUN 22 mg/dL (7-18); CHLORIDE 106 mmol/L (98-107); CHOLESTEROL 178 mg/dL (<200); CO2 25 mmol/L (21-32); CREATININE 0.7 mg/dL (0.6-1.3); GLUCOSE 161 mg/dL (70-99); HDL CHOLESTEROL 78 mg/dL (>40); LDL CHOLESTEROL 90 mg/dL (<100); MAGNESIUM 2.2 mg/dL (1.8-2.4); POTASSIUM 4.5 mmol/L (3.5-5.1); SERUM ASSESSMENT Clear; SGOT 20 U/L (15-37); SGPT 35 U/L (30-65); SODIUM 142 mmol/L (136-145); TC:HDL 2.3 Ratio (Not establshd); TOTAL BILIRUBIN 0.2 mg/dL (<0.1-1.0); TOTAL PROTEIN 5.9 g/dL (6.4-8.2); TRIGLYCERIDE 53 mg/dL (<150); VLDL 11 mg/dL (<40)
[2020-07-31 06:57] LABS: TROPONIN-I LEVEL 0.65 ng/mL (<0.06)
[2020-07-31 08:00] VITALS: BP 117/48
--- NOTE | 2020-07-31 13:57 | NUR ---
ASSUMED CARE OF PATIENT THIS AM AT 0730. PATIENT IS ALERT AND ORIENTED X 4. SHE DENIES PAIN. PATIENT NOTED TO HAVE AN INCREASED RESPIRATORY RATE OF 22 TO 28. SHE HAS AUDIBLE EXPIRATORY WHEEZES NOTED IN HER UPPER AIRWAY. TELE SHOWS SR THIS AM. SHE HAS A COARSE COUGH WITH THIN SPUTUM PRODUCTION. PLANS TO HAVE A CARDIAC CATH CANCELLED DUE TO PATIENT'S RESPIRATORY STATUS. O2 SATS HAVE BEEN >90. DIET RESUMED AT LUNCH. PATIENT APPEARS ANXIOUS AT TIMES. CONSENT FOR CATH SIGNED BY DPOA AND IS ON THE CHART. PATIENT'S RESPIRATIONS STILL APPEAR LABORED. DR RAMIRES NOTIFIED OF PATIENT ASSESSMENT. IS ORDERED. RADIOLOGY IN TO DO PCXRAY. HEPARIN GTT AND IV FLUIDS DISCONTINUED. WILL CONTINUE TO MONITOR. NO C/O CHEST PAIN. NO FALLS OR INJURY.
--- NOTE | 2020-07-31 14:05 | EKG ---
[place] [address] ELECTROCARDIOGRAM REPORT Name: JOSEKENDRA Krzysztof Room: [address] ADM IN ..#: [id number] Admission: 07/29/20 Attend Phys: Cedric Chowdary Discharge: Date of : 48 Date of Service: 07/29/20 1808 Report #: [id number] THIS REPORT FOR: //name// [facility] ED Test Date: 2020-07-29 Test Time: 18:08:58 Pat Name: KENDRA GARCIA Department: Room: [facility] Gender: F Reading Tutor: MARIVEL : 1950 Requested By: Bharath Obando Order Number: [id number] MD: Brodie Salazar Measurements Intervals [place] Rate: 92 P: 66 CA: 136 QRS: 24 QRSD: 69 T: 38 QT: 363 QTc: 450 Interpretive Statements Sinus rhythm Borderline ST elevation, lateral leads Baseline wander in lead(s) V2,V4 Compared to ECG 06/27/2020 17:52:17 ST (T wave) deviation now present Electronically Signed On 07-31-2020 14:04:54 SHOE REPAIRMAN by Brodie Salazar [email or web address] <ELECTRONICALLY SIGNED> By: Brodie Salazar MD, [facility] 07/31/20 1404 180 1808 Brodie Salazar MD, FAC /EPI
--- NOTE | 2020-07-31 14:08 | EKG ---
[place] [address] ELECTROCARDIOGRAM REPORT Name: JOSEKENDRA Krzysztof Room: [address] ADM IN M.R.#: [id number] Admission: 07/29/20 Attend Phys: Cedric Chowdary Discharge: Date of : 48 Date of Service: 07/30/20 [facility] Report #: [id number] THIS REPORT FOR: //name// [facility] Test Date: 2020-07-30 Test Time: 10:24:33 Pat Name: KENDRA GARCIA Department: Room: [address] Gender: F Infection Prevention Practitioner: : 1950 Requested By: Antionette Aj Order Number: [id number] MD: Brodie Salazar Measurements Intervals [place] Rate: 101 P: 69 UT: 129 QRS: 52 QRSD: 87 T: 207 QT: 371 QTc: 481 Interpretive Statements Sinus tachycardia Anteroseptal infarct, age indeterminate Nonspecific T abnormalities, infero- lateral leads Compared to ECG 07/29/2020 18:08:58 Myocardial infarct finding now present T-wave abnormality now present Sinus rate has increased ST (T wave) deviation no longer present Electronically Signed On 07-31-2020 14:08:09 RN OBSERVATION by Brodie Salazar [email or web address] <ELECTRONICALLY SIGNED> By: Brodie Salazar MD, [facility] 07/31/20 1408 1024 1024 Brodie Salazar MD, [facility] /EPI
--- NOTE | 2020-07-31 14:22 | NUR ---
CM INFORMED DURING PRIME ROUNDING OF THE PLAN OF CARE FOR THE PT. PT HAVING INCREASED OXYGEN NEEDS. PT USES 2-3 AT HOME AT BASELINE. PT NOW ON ORAL ABT'S. CM WILL REMAIN AVAILABLE TO ASSIST WITH D/C PLANNING NEEDED.
[2020-07-31 16:58] VITALS: BP 131/68
[2020-08-01] VITALS: BP 178/81
[2020-08-01 03:57] LABS: MCH 28.9 pg (26.0-34.0); MCHC 33.4 g/dL (28.0-37.0); MCV 86.7 fL (80.0-100.0); MPV 7.3 fl. (7.2-11.1); RBC 4.15 mil/uL (4.20-5.00); WBC 10.6 thou/uL (4.0-11.0)
[2020-08-01 04:00] VITALS: BP 177/90
[2020-08-01 04:01] LABS: CALCIUM 8.6 mg/dL (8.5-10.1); CREATININE 0.8 mg/dL (0.6-1.3); MAGNESIUM 2.4 mg/dL (1.8-2.4); POTASSIUM 4.4 mmol/L (3.5-5.1)
--- NOTE | 2020-08-01 06:37 | NUR ---
PATIENT SLEPT PART OF THE NIGHT. PATIENT STILL REMAINS VERY WHEEZY AT TIMES ESPECIALLY WITH MOVEMENT. PATIENT IS ON OXYGEN AT 4L PER NASAL CANNULA. IV REMAINS SALINE LOCKED. PATIENT REMAINS SR/ST ON THE MONITOR. WILL CONTINUE TO MONITOR.
[2020-08-01 08:55] VITALS: BP 170/67
--- NOTE | 2020-08-01 11:32 | NUR ---
CM INFORMED DURING PRIME ROUNDING OF THE PLAN OF CARE FOR THE PT. PT REMAINS ON P.O. STEROIDS AND ABT'S. PT USES HOME OXYGEN @ 2-3L AND BIPAP. D/C PLANNING NEEDS TBD AT THIS TIME. CM WILL REMAIN AVAILABLE TO ASSIST AND FOLLOW NEEDED.
[2020-08-01 12:00] VITALS: BP 163/89
[2020-08-01 16:00] VITALS: BP 154/81
--- NOTE | 2020-08-01 19:20 | NUR ---
ASSUMED CARE OF PATIENT AT 0800 THIS AM. PATIENT IS ALERT AND ORIENTED X 4. DENIES PAIN. PATIENT NOTED TO AN INCREASED RESPIRATORY RATE AND INCREASE WORK OF BREATHING, WITH AUDIBLE EXPIRATORY WHEEZING, COURSE COUGH. COPD EXACERBATION, RT TREATMENTS ON A REGULAR BASIS. RECEIVED NEW ORDER FOR SINGULAIR AND PO ALBUTERAL TODAY. CARDIAC CATH ORDERED AND SCHEDULED FOR TOMORROW IF RESPIRATORY STATUS IS TOLERABLE. PATIENT ATE ALL OF SUPPER TODAY AND TOLERATED WELL. WILL CONTINUE TO MONITOR.
[2020-08-01 20:00] VITALS: BP 153/77
[2020-08-02] VITALS (7 sets, daily range): BP systolic 133–174; BP diastolic 63–87
[2020-08-02 04:23] LABS: HEMATOCRIT 35.8 % (37.0-47.0); MCH 28.8 pg (26.0-34.0); MCHC 33.4 g/dL (28.0-37.0); MCV 86.4 fL (80.0-100.0); MPV 7.3 fl. (7.2-11.1); RBC 4.15 mil/uL (4.20-5.00); RDW-CV 13.7 % (10.5-14.5); WBC 10.2 thou/uL (4.0-11.0)
[2020-08-02 04:38] LABS: CALCIUM 8.1 mg/dL (8.5-10.1); CREATININE 0.7 mg/dL (0.6-1.3); MAGNESIUM 2.4 mg/dL (1.8-2.4); POTASSIUM 4.1 mmol/L (3.5-5.1)
--- NOTE | 2020-08-02 11:44 | NUR ---
CM INFORMED DURING PRIME ROUNDING OF THE PLAN OF CARE FOR THE PT. PLANNED CATH NOW CANCELLED D/T PT'S SOA. PT'S HAS HOME O2 AND BIPAP AT BASELINE. PT WILL REMAIN INPT THROUGH THE WEEKEND. CM WILL REMAIN AVAILABLE TO ASSIST AND FOLLOW NEEDED.
--- NOTE | 2020-08-02 18:52 | NUR ---
RECEIVED REPORT. ASSUMED CARE OF PT AROUND 0730. AM ASSESSMENT AND VITALS COMPLETED CHARTED. MEDS PER EMAR. PT NOT ABLE TO TOLERATE CARDIAC CATH, MEDICAL MANAGEMENT INSTEAD. PT WORKED WITH THERAPIES THIS SHIFT. UP TO BEDSIDE CHAIR FOR 2 MEALS AND UP TO COMMODE NEEDED. PT WITH SOME PERIODS OF CONFUSION, ESPECIALLY IN THE EVENING. PLANNING FOR DC TOMORROW. FAMILY CALLED AND RECEIVED UPDATE TODAY AND PT HAD ONE VISITOR. PT CURRENTLY RESTING IN BED. CALL LIGHT WITHIN REACH. HOURLY ROUNDING PERFORMED. FALL PRECAUTIONS IN PLACE.
[2020-08-03 04:33] VITALS: BP 148/81
[2020-08-03] MEDS ORDERED: ASPIR 8181 MG PO (07:53)
[2020-08-03] MEDS ORDERED: AZITHROMYCIN 2250 MG PO (07:53)
[2020-08-03] MEDS ORDERED: PROTONIX40 M2 PO (07:53)
[2020-08-03] MEDS ORDERED: CEFDINIR300 MG PO (07:53)
[2020-08-03] MEDS ORDERED: PREDNISONE 10 M10 MG PO (07:53)
[2020-08-03] MEDS ORDERED: CLOPIDOGREL75 MG PO (07:53)
[2020-08-03] MEDS ORDERED: COZAAR 25 MG TA25 M1 PO (07:53)
[2020-08-03 15:41] VITALS: BP 142/70
--- NOTE | 2020-08-03 16:24 | NUR ---
PT ALERT AND ORIENTED, VSS. PT REPORTED BRIEF PERIOD OF ANXIETY THIS AM WHILE EATING BREAKFAST. DURING THIS TIME, PT TACHYPNIC. ENCOURAGED DEEP BREATHING EXERCISES AND PT REPORTED RELIEF WITHIN 5 MINUTES. NO FURTHER EVENTS. DC THIS AFTERNOON WITH FAMILY. PAPERWORK COMPLETE. PT BELONGINGS WITH PT AT TIME OF DC.
== END 2020-08-03 16:00 | disposition home or self-care (01) | DRG 177 ==
LOC: M.ERS 17:57 → M.2W 19:11 → M.TBA-ER 19:11 → M.2W 07-30 04:22
PROVIDERS: Emergency Medicine Emergency Medical Services; Internal Medicine; ADMIT Internal Medicine; ATTEND Internal Medicine
PROC: 5A09357 Assistance with Respiratory Ventilation, Less than 24 Consecutive Hours, Continuous Positive Airway Pressure (ICD-10-PCS; principal; 2020-07-29)
DX: J15.6 Pneumonia due to other Gram-negative bacteria (principal); I21.4 Non-ST elevation (NSTEMI) myocardial infarction; J96.01 Acute respiratory failure with hypoxia; J44.1 Chronic obstructive pulmonary disease with (acute) exacerbation; J44.0 Chronic obstructive pulmonary disease with (acute) lower respiratory infection; E11.9 Type 2 diabetes mellitus without complications; E66.9 Obesity, unspecified; F41.9 Anxiety disorder, unspecified; Z20.822 Contact with and (suspected) exposure to COVID-19; Z79.4 Long term (current) use of insulin; Z79.899 Other long term (current) drug therapy; Z88.8 Allergy status to other drugs, medicaments and biological substances; Z68.36 Body mass index [BMI] 36.0-36.9, adult

== ENCOUNTER 2020-09-25 18:44 | Emergency (ER) | payer MEDICARE ==
[~2020-09-25] VITALS: Ht 144.8 cm; Wt 72.6 kg
[~2020-09-25 18:44] MED LIST changes: +ASPIR 8181 MG PO; +AZITHROMYCIN 2250 MG PO; +CEFDINIR300 MG PO; +CLOPIDOGREL75 MG PO; +COZAAR 25 MG TA25 M1 PO; +PROTONIX40 M2 PO
[2020-09-25 21:21] LABS: URINE BILIRUBIN NEGATIVE (Negative); URINE BLOOD 1+ (Negative); URINE CLARITY CLEAR; URINE COLOR YELLOW; URINE GLUCOSE-RANDOM NEGATIVE (Negative); URINE KETONES NEGATIVE (Negative); URINE LEUKOCYTES-REFLEX NEGATIVE (Negative); URINE NITRITE-REFLEX NEGATIVE (Negative); URINE PROTEIN NEGATIVE (Negative); URINE SPECIFIC GRAVITY 1.015 (1.005-1.030); URINE UROBILINOGEN 0.2 E.U./dl (0.2-1.0)
[2020-09-25 21:36] LABS: CASTS None Seen /LPF (None Seen); MUCUS None Seen strn/LPF (None Seen); SQUAMOUS 0-3 Few /LPF (0-3); URINE RBC 0-2 Rare /HPF (0-2)
[2020-09-25 21:37] LABS: BACTERIA-REFLEX None Seen /HPF (None Seen); CRYSTALS None Seen /LPF (None Seen); URINE WBC-REFLEX 0-5 Rare /HPF (0-5)
[2020-09-25 22:36] VITALS: BP 141/51
--- NOTE | 2020-09-26 11:56 | EKG ---
[place] [address] ELECTROCARDIOGRAM REPORT Name: KENDRA GARCIA Room: [facility]#: [id number] Admission: 09/25/20 Attend Phys: Discharge: 09/25/20 Date of : 48 Date of Service: 09/25/20 185 Report #: [id number] THIS REPORT FOR: //name// [facility] ED Test Date: 2020-09-25 Test Time: 18:51:10 Pat Name: KENDRA GARCIA Department: Room: Gender: Flooring Machine Feeder: : 1950 Requested By: Ever Clinton Order Number: [id number] MD: Rai Kelley Measurements Intervals [place] Rate: 86 P: 69 AK: 126 QRS: 38 QRSD: 88 T: 68 QT: 362 QTc: 433 Interpretive Statements Sinus rhythm Baseline wander in lead(s) V2 Compared to ECG 07/30/2020 10:24:33 Sinus tachycardia no longer present Myocardial infarct finding no longer present T-wave abnormality no longer present Electronically Signed On 09-26-2020 11:56:04 CDT by Rai Kelley [email or web address] <ELECTRONICALLY SIGNED> By: Rai Kelley MD, FAC 09/26/20 1156 185 185 Rai Kelley MD, [facility] /EPI
== END 2020-09-25 22:37 | disposition home or self-care (01) ==
LOC: M.ERS 18:44
PROVIDERS: Nurse Practitioner
DX: S20.211A Contusion of right front wall of thorax, initial encounter (principal); M25.511 Pain in right shoulder; R06.02 Shortness of breath; J44.9 Chronic obstructive pulmonary disease, unspecified; F41.9 Anxiety disorder, unspecified; F17.210 Nicotine dependence, cigarettes, uncomplicated; Z98.51 Tubal ligation status; Z90.89 Acquired absence of other organs; Z79.899 Other long term (current) drug therapy; Z79.82 Long term (current) use of aspirin; Z79.4 Long term (current) use of insulin; Z88.8 Allergy status to other drugs, medicaments and biological substances; W18.12XA Fall from or off toilet with subsequent striking against object, initial encounter; Y93.89 Activity, other specified; Y92.091 Bathroom in other non-institutional residence as the place of occurrence of the external cause; Y99.8 Other external cause status

== ENCOUNTER 2020-10-01 16:32 | Emergency (ER) | payer MEDICARE ==
[~2020-10-01] VITALS: Ht 144.8 cm; Wt 72.6 kg
[2020-10-01] MEDS ORDERED: PERCOCET PO (18:31)
[2020-10-01] MEDS ORDERED: XANAX 0.5 MG0.5 MG PO (18:31)
[2020-10-01 19:47] VITALS: BP 160/82
== END 2020-10-01 19:47 | disposition home or self-care (01) ==
LOC: M.ERS 16:32
DX: S20.229A Contusion of unspecified back wall of thorax, initial encounter (principal); S80.812A Abrasion, left lower leg, initial encounter; R06.2 Wheezing; J44.9 Chronic obstructive pulmonary disease, unspecified; F17.210 Nicotine dependence, cigarettes, uncomplicated; Z90.89 Acquired absence of other organs; Z88.8 Allergy status to other drugs, medicaments and biological substances; W08.XXXA Fall from other furniture, initial encounter; Y93.89 Activity, other specified; Y92.89 Other specified places as the place of occurrence of the external cause; Y99.8 Other external cause status

== ENCOUNTER 2020-12-12 16:10 | Inpatient (IN) | payer MEDICARE ==
[~2020-12-12] VITALS: Ht 144.8 cm; Wt 74.5 kg
[~2020-12-12 16:10] MED LIST changes: +PERCOCET PO
[2020-12-12 16:46] LABS: ABSOLUTE BASOPHILS 0.1 thou/uL (0.0-0.2); ABSOLUTE EOSINOPHILS 0.4 thou/uL (0.0-0.7); ABSOLUTE LYMPHOCYTES 3.1 thou/uL (0.8-5.3); ABSOLUTE MONOCYTES 1.2 thou/uL (0.0-1.2); ABSOLUTE NEUTROPHILS 6.4 thou/uL (1.6-8.1); BASOPHILS 0.9 %; EOSINOPHILS 3.4 %; HEMATOCRIT 35.3 % (37.0-47.0); HEMOGLOBIN 11.9 gm/dL (12.0-15.0); LYMPHOCYTES 27.9 %; MCH 28.2 pg (26.0-34.0); MCHC 33.7 g/dL (28.0-37.0); MCV 83.6 fL (80.0-100.0); MONOCYTES 10.5 %; MPV 6.9 fl. (7.2-11.1); NUCLEATED RBCS 0 /100WBC; PLATELET COUNT* 259 thou/uL (150-400); POLYS 57.3 %; RBC 4.23 mil/uL (4.20-5.00); RDW-CV 15.1 % (10.5-14.5); WBC 11.2 thou/uL (4.0-11.0)
[2020-12-12 17:12] LABS: CALCIUM 8.5 mg/dL (8.5-10.1); CREATININE 0.6 mg/dL (0.6-1.3); POTASSIUM 3.9 mmol/L (3.5-5.1)
[2020-12-12 17:22] LABS: ALBUMIN 3.7 g/dL (3.4-5.0); MAGNESIUM 1.9 mg/dL (1.8-2.4); TOTAL BILIRUBIN 0.4 mg/dL (<0.1-1.0); TOTAL PROTEIN 6.9 g/dL (6.4-8.2)
[2020-12-12 18:28] VITALS: BP 145/65
[2020-12-12 18:50] VITALS: BP 143/57
[2020-12-12 20:00] VITALS: BP 139/57
[2020-12-13] VITALS: BP 154/89
[2020-12-13 04:00] VITALS: BP 144/90
[2020-12-13 05:08] LABS: HEMATOCRIT 35.6 % (37.0-47.0); HEMOGLOBIN 12.2 gm/dL (12.0-15.0); MCH 28.4 pg (26.0-34.0); MCHC 34.1 g/dL (28.0-37.0); MCV 83.4 fL (80.0-100.0); MPV 7.3 fl. (7.2-11.1); NUCLEATED RBCS 0 /100WBC; PLATELET COUNT* 248 thou/uL (150-400); RBC 4.27 mil/uL (4.20-5.00); RDW-CV 14.8 % (10.5-14.5); WBC 6.8 thou/uL (4.0-11.0)
[2020-12-13 05:27] LABS: CALCIUM 8.8 mg/dL (8.5-10.1); CREATININE 0.5 mg/dL (0.6-1.3); POTASSIUM 4.2 mmol/L (3.5-5.1)
[2020-12-13 06:47] LABS: ABSOLUTE BASOPHILS 0.1 thou/uL (0.0-0.2); ABSOLUTE NEUTROPHILS 5.8 thou/uL (1.6-8.1)
[2020-12-13 08:00] VITALS: BP 112/45
--- NOTE | 2020-12-13 10:51 | EKG ---
[place] [address] ELECTROCARDIOGRAM REPORT Name: KENDRA GARCIA Room: [address] IN ..#: [id number] Admission: 12/12/20 Attend Phys: Chandrakant Zendejas, Discharge: Date of : 48 Date of Service: 12/12/20 1620 Report #: [id number] THIS REPORT FOR: //name// [facility] ED Test Date: 2020-12-12 Test Time: 16:20:42 Pat Name: KENDRA GRACIA Department: Room: [facility] Gender: F Facilities Flight Check Pilot: DREAD : 1950 Requested By: Bharath Obando Order Number: [id number] MD: Brodie Salazar Measurements Intervals [place] Rate: 98 P: 74 UT: 129 QRS: 23 QRSD: 104 T: 50 QT: 350 QTc: 447 Interpretive Statements Sinus rhythm Baseline wander in lead(s) V3 Compared to ECG 09/25/2020 18:51:10 No significant changes Electronically Signed On 12-13-2020 10:51:29 CDT by Brodie Salazar [email or web address] <ELECTRONICALLY SIGNED> By: Brodie Salazar MD, [facility] 12/13/20 1051 1620 1620 Brodie Salazar MD, [facility] /EPI
[2020-12-13 13:03] VITALS: BP 121/68
[2020-12-13 15:45] LABS: APTT 24.8 Seconds (25.0-31.3); PROTIME 10.6 Seconds (9.20-11.50)
[2020-12-13 16:33] VITALS: BP 138/84
[2020-12-13 20:00] VITALS: BP 147/87
[2020-12-14] VITALS (7 sets, daily range): BP systolic 134–176; BP diastolic 61–78
[2020-12-15 04:28] VITALS: BP 151/73
[2020-12-15 06:37] LABS: HEMATOCRIT 36.7 % (37.0-47.0); HEMOGLOBIN 12.4 gm/dL (12.0-15.0); MCH 28.1 pg (26.0-34.0); MCHC 33.8 g/dL (28.0-37.0); MCV 83.1 fL (80.0-100.0); MPV 7.3 fl. (7.2-11.1); RBC 4.42 mil/uL (4.20-5.00); RDW-CV 14.8 % (10.5-14.5); WBC 8.5 thou/uL (4.0-11.0)
[2020-12-15 06:58] LABS: CALCIUM 8.6 mg/dL (8.5-10.1); CREATININE 0.5 mg/dL (0.6-1.3); POTASSIUM 3.8 mmol/L (3.5-5.1)
[2020-12-15 08:00] VITALS: BP 162/78
[2020-12-15 11:29] VITALS: BP 161/83
[2020-12-15 15:42] VITALS: BP 153/83
[2020-12-15 19:25] VITALS: BP 185/77
[2020-12-16 04:52] VITALS: BP 179/86
[2020-12-16 08:32] VITALS: BP 185/74
[2020-12-16 12:00] VITALS: BP 164/68
[2020-12-16 16:00] VITALS: BP 173/79
[2020-12-16 20:00] VITALS: BP 192/80
--- NOTE | 2020-12-16 20:33 | CON ---
[address] [address] CONSULTATION Name: KENDRA GARCIA Krzysztof Room: [address] IN .R.#: [id number] Admission: 12/12/20 Attend Phys: Chandrakant Zendejas MD Discharge: Date of : 48 Report #: [id number] THIS REPORT FOR: cc: Mohini Joshi Michelle RNP Pervez, Adeel MD ~ DOC #: [id number] Michel Benavides MD DATE OF CONSULTATION: 12/13/2020 REQUESTING PHYSICIAN: Dr. Chandrakant Zendejas. INDICATION FOR CONSULTATION: Gregj-zh-gkmbyps hypoxemic respiratory failure secondary to chronic obstructive pulmonary disease exacerbation. HISTORY OF PRESENT ILLNESS: This is a 70-year-old female, past medical history includes a history of chronic obstructive pulmonary disease as well as obstructive sleep apnea. She has a CPAP at home, also is on long-term oxygen at home, has previously had non-ST myocardial infarction with troponin I just above 2. The plan at that time was to perform an outpatient stress test. It is not known to me as to whether the patient has had further workup for this. There is Plavix mentioned on the patient's medication list. The patient, however, is not aware of Plavix. At this time, the patient is admitted with increasing shortness of breath over the last two to three weeks; however, has significantly worsened yesterday. She states that there was a sudden worsening in her shortness of breath yesterday. She does have a cough. There is not much sputum. There is no chest pain. She does not have any new upper respiratory complaints. Has had some nose complaints longstanding, which has not changed recently. No fever or chills. No increase in swelling of lower extremities, no calf pain. The patient has been actively bronchospastic since admission. She was maintaining O2 saturation on 4 liters nasal cannula earlier today after being on BiPAP earlier. However, she was significantly short of breath and had increased work of breathing and therefore had to be placed on a BiPAP. Currently, she is on a BiPAP of 05/26, 50% FIO2. She is stable on the BiPAP; however, continues to have a high respiratory rate in the high 20s to 30. She has had sleep complaints and daytime sleepiness. These symptoms are at baseline. REVIEW OF SYSTEMS: A 12 points is negative except as mentioned above. PAST MEDICAL HISTORY: Chronic obstructive pulmonary disease, on oxygen long-term, obstructive sleep apnea on a CPAP at home, anxiety, tubal ligation, tonsillectomy, non-ST myocardial infarction. Troponin I just above 2.0. Previously not known to me as to whether she has ever [place] [address] CONSULTATION Name: KENDRA GARCIA Krzysztof Room: [address] IN [facility]#: [id number] Admission: 12/12/20 Attend Phys: Chandrakant Zendejas MD Discharge: Date of : 48 Report #: [id number] cardiac catheterization. Echocardiogram around the time when she had a dnu-FV-fxxnnvfrh myocardial infarction in July of this year showed a normal left ventricular ejection fraction of 65% without elevation in right heart pressures. SOCIAL HISTORY: There is an extensive history of smoking in the past. She has now discontinued. No known history of heavy alcohol use or illegal drug use. ALLERGIES: SHE HAS HAD HALLUCINATIONS WITH ATIVAN; this appears to be a side effect and not true allergies. CURRENT MEDICATIONS: List in [facility] reviewed. HOME MEDICATION: List also in [facility] reviewed. She is noted to be on Plavix amongst other medications. FAMILY HISTORY: No pertinent family history. PHYSICAL EXAMINATION: GENERAL: She is alert, awake and oriented. VITAL SIGNS: Still does appear to be short of breath on a BiPAP of 12/6, is generating tidal volumes in the mid 400s, respiratory rate was around 28-30 has a pulse of 81, blood pressure 121/68. She is saturating in the high 90s. She is afebrile with a temperature of 36.3. Body mass index 36. HEENT: Head is normocephalic and atraumatic. Pupils are equal and reactive. There is no throat erythema. Throat examination is limited due to the presence of BiPAP with the narrow airway, Mallampati 4. I do not see any obvious thrush or throat erythema. NECK: Does not show raised JVP asymmetry, mass or lymph nodes. CHEST: Symmetrical expansion on inspection and palpation. On auscultation, breath sounds are markedly decreased. Expirations are prolonged. There is accessory muscle use. She is tachypneic as above. HEART: Regular. There is no murmur. ABDOMEN: Soft and nontender. LOWER EXTREMITIES: Show no edema, no calf tenderness. SKIN: Dry and intact. NEUROLOGIC: Moves all extremities bilaterally equally and spontaneously with no focal deficit identified. LABORATORY DATA: The patient's chest x-ray shows scarring which is unchanged compared with the previous chest x-rays. The patient's lab work is in [facility] and this is reviewed. ASSESSMENT AND PLAN: [address] [address] CONSULTATION Name: KENDRA GARCIA Room: [address] IN [facility].#: [id number] Admission: 12/12/20 Attend Phys: Chandrakant Zendejas MD Discharge: Date of : 48 Report #: [id number] 1. Wavlp-qs-xfscwys hypoxemic respiratory failure. Primarily, she appears to have bronchospasm secondary to chronic obstructive pulmonary disease exacerbation. I do not see any significant increase in pulmonary vascular congestion or new infiltrates on the patient's chest x-ray; thromboembolism is not ruled out at this time. At this time, we will continue with BiPAP. I did not change the settings at this time, but we will follow. Use BiPAP while asleep and p.r.n. She does appear to be needing it at this time. 2. Chronic obstructive pulmonary disease exacerbation. Agree with Solu-Medrol as well as DuoNeb as currently prescribed. I will go ahead and add Brovana and budesonide. We will also give her Singulair; also agree with ceftriaxone. 3. Obstructive sleep apnea. She is on a CPAP at home on BiPAP at this time. 4. Evaluation for thromboembolic phenomena. I feel thromboembolism is not ruled out, although if she in fact takes Plavix at home then this will reduce the incident. I recommended that we obtain a D-dimer at this time and if it is positive, then consider further evaluation for thromboembolism. The patient says that she has poor veins and she declined a D-dimer at this time. I will obtain a D-dimer tomorrow morning's labs. If this is elevated and I will consider a further workup for thromboembolism. 5. Past medical history of non-ST myocardial infarction and Plavix use. See discussion above. I do not have details available. Plavix is on the patient's medication list; however, she is not aware of taking it at home. She is currently on Plavix. 6. Deep vein thrombosis prophylaxis, Lovenox. 7. Hyperglycemia. We will start an insulin sliding scale. 8. Gastrointestinal prophylaxis, Protonix. 9. Clostridium difficile prophylaxis, Lactinex. 10. Obesity. Weight loss is recommended. Thanks for this consultation. MD KAYLI Schulte/KATELYN <ELECTRONICALLY SIGNED> By: Michel Benavides MD 12/16/202032 1424 2146Agillian Benavides MD /nt
[2020-12-17] VITALS: BP 144/72
[2020-12-17 04:50] VITALS: BP 167/87
[2020-12-17 08:00] LABS: ABSOLUTE LYMPHOCYTES 0.9 thou/uL (0.8-5.3); ABSOLUTE MONOCYTES 0.7 thou/uL (0.0-1.2); ABSOLUTE NEUTROPHILS 8.4 thou/uL (1.6-8.1); BASOPHILS 0.2 %; HEMATOCRIT 41.3 % (37.0-47.0); HEMOGLOBIN 13.8 gm/dL (12.0-15.0); LYMPHOCYTES 9.4 %; MCH 28.2 pg (26.0-34.0); MCHC 33.5 g/dL (28.0-37.0); MCV 84.3 fL (80.0-100.0); MONOCYTES 6.9 %; MPV 7.2 fl. (7.2-11.1); NUCLEATED RBCS 0 /100WBC; PLATELET COUNT* 314 thou/uL (150-400); POLYS 83.5 %; WBC 10.1 thou/uL (4.0-11.0)
[2020-12-17 08:09] LABS: ALBUMIN 3.7 g/dL (3.4-5.0); CALCIUM 8.5 mg/dL (8.5-10.1); CREATININE 0.7 mg/dL (0.6-1.3); MAGNESIUM 2.4 mg/dL (1.8-2.4); POTASSIUM 3.9 mmol/L (3.5-5.1); TOTAL BILIRUBIN 0.4 mg/dL (<0.1-1.0); TOTAL PROTEIN 6.9 g/dL (6.4-8.2)
[2020-12-17 08:34] VITALS: BP 156/80
[2020-12-17 11:53] VITALS: BP 147/71
[2020-12-17 17:17] VITALS: BP 144/73
[2020-12-17 20:00] VITALS: BP 127/61
[2020-12-18] VITALS: BP 159/86
[2020-12-18 04:08] LABS: CALCIUM 8.1 mg/dL (8.5-10.1); CREATININE 0.5 mg/dL (0.6-1.3); POTASSIUM 4.6 mmol/L (3.5-5.1)
[2020-12-18 04:22] VITALS: BP 143/85
[2020-12-18 08:00] VITALS: BP 153/61
[2020-12-18 12:00] VITALS: BP 153/81
[2020-12-18 16:00] VITALS: BP 150/73
[2020-12-18 21:00] VITALS: BP 141/61
[2020-12-19] VITALS: BP 135/63
[2020-12-19 04:21] VITALS: BP 152/70
[2020-12-19] MEDS ORDERED: PREDNISONE 10 M10 MG PO (07:51)
[2020-12-19 08:00] VITALS: BP 139/64
[2020-12-19 11:55] VITALS: BP 136/62
[2020-12-19 16:41] VITALS: BP 134/73
[2020-12-19 19:45] VITALS: BP 140/66
[2020-12-20] VITALS: BP 151/60
[2020-12-20 04:00] VITALS: BP 148/66
[2020-12-20 08:00] VITALS: BP 131/57
[2020-12-20 19:30] VITALS: BP 146/69
[2020-12-21] VITALS: BP 157/81
[2020-12-21 08:00] VITALS: BP 125/66
[2020-12-21 16:00] VITALS: BP 128/82
[2020-12-21 19:47] VITALS: BP 114/60
[2020-12-21 20:01] VITALS: BP 126/61
[2020-12-21 20:55] VITALS: BP 114/60
[2020-12-22 07:55] VITALS: BP 119/62
[2020-12-22 15:26] VITALS: BP 116/45
[2020-12-22 19:30] VITALS: BP 112/55
[2020-12-23 07:34] VITALS: BP 111/61
[2020-12-23 16:52] VITALS: BP 126/54
[2020-12-23 21:00] VITALS: BP 128/63
[2020-12-24 07:10] VITALS: BP 139/53
[2020-12-24 08:19] VITALS: BP 139/53
== END 2020-12-24 17:15 | DRG 177 ==
LOC: M.ERS 16:10 → M.TBA-ER 17:30 → M.2W 17:30 → M.ORTHSURG 12-21 20:55
PROVIDERS: Emergency Medicine Emergency Medical Services; Internal Medicine; Internal Medicine Critical Care Medicine; ADMIT Internal Medicine; ATTEND Internal Medicine
PROC: 5A09357 Assistance with Respiratory Ventilation, Less than 24 Consecutive Hours, Continuous Positive Airway Pressure (ICD-10-PCS; principal; 2020-12-12)
PROC: 5A09357 Assistance with Respiratory Ventilation, Less than 24 Consecutive Hours, Continuous Positive Airway Pressure (ICD-10-PCS; 2020-12-13)
PROC: 5A09357 Assistance with Respiratory Ventilation, Less than 24 Consecutive Hours, Continuous Positive Airway Pressure (ICD-10-PCS; 2020-12-14)
PROC: 5A09357 Assistance with Respiratory Ventilation, Less than 24 Consecutive Hours, Continuous Positive Airway Pressure (ICD-10-PCS; 2020-12-15)
PROC: 5A09357 Assistance with Respiratory Ventilation, Less than 24 Consecutive Hours, Continuous Positive Airway Pressure (ICD-10-PCS; 2020-12-17)
PROC: 5A09357 Assistance with Respiratory Ventilation, Less than 24 Consecutive Hours, Continuous Positive Airway Pressure (ICD-10-PCS; 2020-12-18)
PROC: 5A09357 Assistance with Respiratory Ventilation, Less than 24 Consecutive Hours, Continuous Positive Airway Pressure (ICD-10-PCS; 2020-12-19)
PROC: 5A09357 Assistance with Respiratory Ventilation, Less than 24 Consecutive Hours, Continuous Positive Airway Pressure (ICD-10-PCS; 2020-12-20)
PROC: 5A09357 Assistance with Respiratory Ventilation, Less than 24 Consecutive Hours, Continuous Positive Airway Pressure (ICD-10-PCS; 2020-12-22)
PROC: 5A09357 Assistance with Respiratory Ventilation, Less than 24 Consecutive Hours, Continuous Positive Airway Pressure (ICD-10-PCS; 2020-12-23)
DX: J15.6 Pneumonia due to other Gram-negative bacteria (principal); J96.21 Acute and chronic respiratory failure with hypoxia; J44.1 Chronic obstructive pulmonary disease with (acute) exacerbation; J44.0 Chronic obstructive pulmonary disease with (acute) lower respiratory infection; F41.9 Anxiety disorder, unspecified; J20.9 Acute bronchitis, unspecified; E66.9 Obesity, unspecified; R73.9 Hyperglycemia, unspecified; G47.33 Obstructive sleep apnea (adult) (pediatric); I10 Essential (primary) hypertension; Z20.822 Contact with and (suspected) exposure to COVID-19; Z79.01 Long term (current) use of anticoagulants; Z90.49 Acquired absence of other specified parts of digestive tract; Z79.82 Long term (current) use of aspirin; Z79.899 Other long term (current) drug therapy; Z88.8 Allergy status to other drugs, medicaments and biological substances; I25.2 Old myocardial infarction; Z87.891 Personal history of nicotine dependence; Z68.35 Body mass index [BMI] 35.0-35.9, adult

== ENCOUNTER 2021-02-09 11:05 | Inpatient (IN) | payer MEDICARE ==
[~2021-02-09] VITALS: Ht 144.8 cm; Wt 74.5 kg
[2021-02-09 11:10] VITALS: BP 105/61
[2021-02-09 12:03] LABS: ABSOLUTE BASOPHILS 0.1 thou/uL (0.0-0.2); ABSOLUTE EOSINOPHILS 0.2 thou/uL (0.0-0.7); ABSOLUTE LYMPHOCYTES 1.8 thou/uL (0.8-5.3); ABSOLUTE MONOCYTES 0.7 thou/uL (0.0-1.2); ABSOLUTE NEUTROPHILS 4.9 thou/uL (1.6-8.1); BASOPHILS 0.8 %; EOSINOPHILS 2.6 %; HEMOGLOBIN 9.7 gm/dL (12.0-15.0); LYMPHOCYTES 23.4 %; MCH 27.8 pg (26.0-34.0); MCHC 32.5 g/dL (28.0-37.0); MCV 85.6 fL (80.0-100.0); MONOCYTES 9.7 %; MPV 6.8 fl. (7.2-11.1); NUCLEATED RBCS 0 /100WBC; PLATELET COUNT* 300 thou/uL (150-400); POLYS 63.5 %; RDW-CV 15.7 % (10.5-14.5); WBC 7.7 thou/uL (4.0-11.0)
[2021-02-09 12:12] LABS: CALCIUM 8.9 mg/dL (8.5-10.1); CREATININE 0.6 mg/dL (0.6-1.3); POTASSIUM 3.9 mmol/L (3.5-5.1)
[2021-02-09 12:16] LABS: ALBUMIN 3.8 g/dL (3.4-5.0); MAGNESIUM 1.9 mg/dL (1.8-2.4); TOTAL BILIRUBIN 0.5 mg/dL (<0.1-1.0); TOTAL PROTEIN 6.9 g/dL (6.4-8.2)
[2021-02-09] MEDS ORDERED: SYMBICORT160 MCG/4. INH (14:43)
--- NOTE | 2021-02-09 15:28 | EKG ---
[place] [address] ELECTROCARDIOGRAM REPORT Name: KENDRA GARCIA Room: [place] [address] ADM IN ..#: [id number] Admission: 02/09/21 Attend Phys: Cedric Chowdary Discharge: Date of : 48 Date of Service: 02/09/21 1124 Report #: [id number] THIS REPORT FOR: //name// [facility] ED Test Date: 2021-02-09 Test Time: 11:24:47 Pat Name: KENDRA GARCIA Department: Room: [facility] Gender: F Dressing Room Porter: CD : 1950 Requested By: Bharath Obando Order Number: [id number] MD: Rai Kelley Measurements Intervals [place] Rate: 78 P: 57 NM: 148 QRS: 21 QRSD: 91 T: 45 QT: 387 QTc: 441 Interpretive Statements Sinus rhythm Compared to ECG 12/12/2020 16:20:42 No significant changes Electronically Signed On 02-09-2021 15:28:27 CDT by Rai Kelley [email or web address] <ELECTRONICALLY SIGNED> By: Rai Kelley MD, [facility] 02/09/21 1528 1124 1124 Rai Kelley MD, [facility] /EPI
[2021-02-09 18:26] LABS: BE 1.5 mmol/L (-2 to +3); PCO2 44.9 mmHg (35.0-45.0); PO2 108.2 mmHg (75.0-100.0); pH 7.393 (7.340-7.450)
[2021-02-09 20:57] LABS: HEMATOCRIT 31.5 % (37.0-47.0); HEMOGLOBIN 10.3 gm/dL (12.0-15.0); MCH 27.9 pg (26.0-34.0); MCHC 32.6 g/dL (28.0-37.0); MCV 85.8 fL (80.0-100.0); MPV 6.8 fl. (7.2-11.1); RBC 3.68 mil/uL (4.20-5.00); RDW-CV 15.7 % (10.5-14.5); WBC 5.6 thou/uL (4.0-11.0)
[2021-02-09 21:00] VITALS: BP 148/78
[2021-02-09 22:00] VITALS: BP 142/55
[2021-02-09 22:50] VITALS: BP 133/54
--- NOTE | 2021-02-10 02:21 | NUR ---
PATIENT UP FROM ER VIA CART TO ROOM 202. PT ALERT/ORIENTED X4; FORGETFUL AND EXTREMELY ANXIOUS. PT ORIENTED TO ROOM/POLICIES VERBALIZES UNDERSTANDING HOWEVER NEEDS REINFORCEMENT. PT ON O2 @ 2LITERS PER NASAL CANNULA. PT WITH NUMEROUS OLD BRUISING ALL OVER BODY SHE SAYS FROM FALLING AFTER SHE GOT OUT OF BATHTUB. PT LIVES WITH DAUGHTER IN A HOUSE AND FEELS SAFE RETURNING HOME. GRANDDAUGHTER IS PT'S DPOA. PT IS VERY ANXIOUS AND IS COMMERCIAL REAL ESTATE LENDER LIGHT 5-6 TIMES EVERY 30 MINUTES. FREQUENTLY USED ITEMS AND CALL LIGHT WITHIN REACH. SIDERAILS UPX3 AND BED ALARM ON. WILL CONTINUE TO MONITOR.
[2021-02-10 03:37] VITALS: BP 175/81
--- NOTE | 2021-02-10 04:42 | NUR ---
PATIENT AWAKE MOST OF THE NIGHT, VERY ANXIOUS. PT WITH AUDIBLE WHEEZING AT TIMES; BREATHING TREATMENT GIVEN ORDERED. PT WITH PUREWICK IN PLACE. PT ON O2 @ 2 LITERS PER NASAL CANNULA. DTR WILL BE CONTACTED LATER THIS AM FOR PT'S HOME BIPAP. FREQUENTLY USED ITEMS AND CALL LIGHT WITHIN REACH. SIDERAILS UPX3 AND BED ALARM ON. WILL CONTINUE TO MONITOR.
[2021-02-10 08:05] VITALS: BP 156/68
[2021-02-10 12:00] VITALS: BP 141/61
--- NOTE | 2021-02-10 12:44 | NUR ---
Pt known to this CM from previous hospital stay. Pt is A&O. Resides at home with dtr. Independent with ADLs, dtr assists if needed. Pt has a walker and cane that she can use for mobility. Pt has home o2 and a bipap. Hx of [facility]. Hx of [facility]. Covid negative. Anticipate dc in a few days. Following.
[2021-02-10 16:00] VITALS: BP 109/86; BP 131/61
[2021-02-11] VITALS (7 sets, daily range): BP systolic 126–161; BP diastolic 47–68
--- NOTE | 2021-02-11 04:30 | NUR ---
PATIENT SLEPT WELL DURING THIS SHIFT. PT ON O2 @ 2 LITERS PER NASAL CANNULA. PT DENIES PAIN/NAUSEA DURING THIS SHIFT. PT ABLE TO REPOSITION HERSELF IN BED. PT IS INCONTINENT OF URINE. FREQUENTLY USED ITEMS AND CALL LIGHT WITHIN REACH. SIDERAILS UP X3 AND BED ALARM ON. WILL CONTINUE TO MONITOR.
--- NOTE | 2021-02-11 13:55 | NUR ---
Anticipate dc in a few days. Therapies to eval today. CM following for dc recs. HH vs SNF
--- NOTE | 2021-02-11 18:59 | NUR ---
PATIENT ALERT X3 WITH INCREASED CONFUSION THE DAY WENT. INCREASED ANXIETY TODAY. ANXITEY PRN MEDICATION ORDERED AND ADMINISTERED. MD AWARE UNABLE TO GET IV ACCESS. IV MEDICATION CHANGED TO ORAL.
[2021-02-12 04:05] VITALS: BP 165/71
--- NOTE | 2021-02-12 04:22 | NUR ---
PATIENT HAS REMAINED ALERT AND ORIENTED X 4 WITH SOME FORGETFULNESS. RESTING QUIETLY ON HOURLY ROUNDS. TURNED SELF. 02 AT 3L/MIN BY NASAL CANNULA AND TRILOGY OVERNIGHT. VITAL SIGNS STABLE WITH 02 SATS 95% OR GREATER. FALL PRECAUTIONS IN PLACE. CONTINUE TO MONITOR.
[2021-02-12 11:18] VITALS: BP 181/72
--- NOTE | 2021-02-12 13:12 | NUR ---
Therapies recommending skilled. CM checking with [facility] to determine how many skilled days Pt used last month. If no skilled, plan home with HH. Plan to change Pt to predinisone. On 3L, continue to wean, Pt baseline o2 is 2L. Anticipate dc tomorrow.
--- NOTE | 2021-02-12 14:47 | NUR ---
I AM IN AGREEMENT WITH [facility]'S DOCUMENTATION. KELLEY LOPEZ, RIGOT
[2021-02-12 16:31] VITALS: BP 116/68
--- NOTE | 2021-02-12 18:30 | NUR ---
PATIENT RESTING IN BED. DAUGHTER AT BEDSIDE. PATIENT ON 3L NASAL CANNULA AT 99%. NO IV ACCESS. PATIENT REQUESTS NO VITAL SIGNS BETWEEN [id number], ORDER HAS BEEN PLACED BY DR. SONG. X1-2 ASSIST. BED IN LOW/LOCKED POSITION. CALL LIGHT WITHIN REACH. ALL QUESTIONS AND CONCERNS ADDRESSED.
[2021-02-12 19:45] VITALS: BP 119/52
[2021-02-13 04:10] LABS: ABSOLUTE LYMPHOCYTES 1.9 thou/uL (0.8-5.3); ABSOLUTE MONOCYTES 0.8 thou/uL (0.0-1.2); BASOPHILS 0.1 %; EOSINOPHILS 0.3 %; HEMATOCRIT 28.4 % (37.0-47.0); HEMOGLOBIN 9.3 gm/dL (12.0-15.0); LYMPHOCYTES 24.6 %; MCH 27.4 pg (26.0-34.0); MCHC 32.7 g/dL (28.0-37.0); MCV 83.9 fL (80.0-100.0); MPV 6.7 fl. (7.2-11.1); NUCLEATED RBCS 0 /100WBC; PLATELET COUNT* 299 thou/uL (150-400); RBC 3.39 mil/uL (4.20-5.00); RDW-CV 15.2 % (10.5-14.5); WBC 7.7 thou/uL (4.0-11.0)
[2021-02-13 04:36] LABS: ALBUMIN 3.3 g/dL (3.4-5.0); CALCIUM 8.5 mg/dL (8.5-10.1); CREATININE 0.6 mg/dL (0.6-1.3); POTASSIUM 3.8 mmol/L (3.5-5.1); TOTAL BILIRUBIN 0.3 mg/dL (<0.1-1.0); TOTAL PROTEIN 5.8 g/dL (6.4-8.2)
--- NOTE | 2021-02-13 05:02 | NUR ---
PT SLEPT MOST OF SHIFT. ASSESSMENT DOCUMENTED. MEDS GIVEN PER -AUG. NO IV ACCESS THIS SHIFT. NO REPORTS OF PAIN. FALL PRECAUTIONS IN PLACE. PT ABLE TO MAKE NEEDS KNOWN. WILL CONTINUE WITH PLAN OF CARE.
[2021-02-13 08:00] VITALS: BP 148/69
[2021-02-13] MEDS ORDERED: IRON325 PO (08:28)
[2021-02-13] MEDS ORDERED: HYDROCODON-ACE1 EAC7 PO (08:28)
[2021-02-13] MEDS ORDERED: PREDNISONE 10 M10 M1 PO (08:28)
[2021-02-13] MEDS ORDERED: BROVANA15 MCG/2 M INH (08:28)
[2021-02-13] MEDS ORDERED: PULMICORT0.5 MG/2 M INH (08:28)
[2021-02-13] MEDS ORDERED: FLUCONAZOLE 10100 MG PO (08:28)
--- NOTE | 2021-02-13 11:50 | NUR ---
Pt discharging to [facility] today. Faxed dc orders. Chart copied. Nurse report number is [phone]. Updated Pt's dtr. Facility to flower buncher or picker at 230pm.
[2021-02-13 17:00] VITALS: BP 144/86
== END 2021-02-13 17:00 | DRG 189 ==
LOC: M.ERS 11:05 → M.TBA-ER 12:46 → M.2W 12:46
PROVIDERS: Emergency Medicine Emergency Medical Services; Internal Medicine; ADMIT Internal Medicine; ATTEND Internal Medicine
PROC: 5A09357 Assistance with Respiratory Ventilation, Less than 24 Consecutive Hours, Continuous Positive Airway Pressure (ICD-10-PCS; principal; 2021-02-12)
DX: J96.21 Acute and chronic respiratory failure with hypoxia (principal); J44.1 Chronic obstructive pulmonary disease with (acute) exacerbation; B37.0 Candidal stomatitis; D64.9 Anemia, unspecified; G47.33 Obstructive sleep apnea (adult) (pediatric); E66.9 Obesity, unspecified; R07.89 Other chest pain; Z20.822 Contact with and (suspected) exposure to COVID-19; F41.9 Anxiety disorder, unspecified; Z88.8 Allergy status to other drugs, medicaments and biological substances; Z87.891 Personal history of nicotine dependence; I25.2 Old myocardial infarction; Z68.35 Body mass index [BMI] 35.0-35.9, adult; Z79.02 Long term (current) use of antithrombotics/antiplatelets; Z79.899 Other long term (current) drug therapy

== ENCOUNTER 2021-03-07 22:14 | Inpatient (IN) | payer MEDICARE ==
[~2021-03-07] VITALS: Ht 144.8 cm; Wt 70.3 kg
[~2021-03-07 22:14] MED LIST changes: +FLUCONAZOLE 10100 MG PO; +IRON325 PO; +PREDNISONE 10 M10 M1 PO; +PULMICORT0.5 MG/2 M INH; +SYMBICORT160 MCG/4. INH
[2021-03-07 22:25] VITALS: BP 147/65
[2021-03-07 23:26] LABS: ABSOLUTE BASOPHILS 0.1 thou/uL (0.0-0.2); ABSOLUTE EOSINOPHILS 0.1 thou/uL (0.0-0.7); ABSOLUTE LYMPHOCYTES 1.4 thou/uL (0.8-5.3); ABSOLUTE MONOCYTES 0.7 thou/uL (0.0-1.2); ABSOLUTE NEUTROPHILS 4.5 thou/uL (1.6-8.1); BASOPHILS 1.3 %; EOSINOPHILS 2.2 %; HEMATOCRIT 32.1 % (37.0-47.0); HEMOGLOBIN 10.7 gm/dL (12.0-15.0); LYMPHOCYTES 20.8 %; MCH 28.4 pg (26.0-34.0); MCHC 33.5 g/dL (28.0-37.0); MCV 84.8 fL (80.0-100.0); MPV 6.7 fl. (7.2-11.1); NUCLEATED RBCS 0 /100WBC; PLATELET COUNT* 264 thou/uL (150-400); POLYS 65.7 %; RBC 3.78 mil/uL (4.20-5.00); RDW-CV 16.6 % (10.5-14.5); WBC 6.9 thou/uL (4.0-11.0)
[2021-03-07 23:42] LABS: ALBUMIN 3.4 g/dL (3.4-5.0); CALCIUM 8.8 mg/dL (8.5-10.1); CREATININE 0.7 mg/dL (0.6-1.3); POTASSIUM 3.5 mmol/L (3.5-5.1); TOTAL BILIRUBIN 0.3 mg/dL (<0.1-1.0); TOTAL PROTEIN 6.3 g/dL (6.4-8.2)
[2021-03-08 01:30] VITALS: BP 144/68
[2021-03-08 01:45] VITALS: BP 139/61
--- NOTE | 2021-03-08 06:41 | NUR ---
PATIENT ARRIVED ON FLOOR FROM ER AT ABOUT 0145. PATIENT ADMISSION HISTORY AND ASSESSMENT WAS COMPLETED CHARTED. PATIENT IS ON OXYGEN AT 3L PER NASAL CANNULA WHICH PATIENT WEARS AT HOME. BED ALARM ON. PATIENT INSTRUCTED TO CALL FOR HELP WHEN NEEDED. WILL CONTINUE TO MONITOR.
[2021-03-08 07:50] VITALS: BP 129/53
[2021-03-08 12:00] VITALS: BP 140/75
[2021-03-08 12:17] LABS: URINE BILIRUBIN NEGATIVE (Negative); URINE BLOOD TRACE (Negative); URINE CLARITY CLEAR; URINE COLOR YELLOW; URINE GLUCOSE-RANDOM 2+ (Negative); URINE KETONES NEGATIVE (Negative); URINE LEUKOCYTES-REFLEX NEGATIVE (Negative); URINE NITRITE-REFLEX NEGATIVE (Negative); URINE PROTEIN NEGATIVE (Negative); URINE UROBILINOGEN 0.2 E.U./dl (0.2-1.0)
[2021-03-08 16:00] VITALS: BP 130/56
--- NOTE | 2021-03-08 18:30 | NUR ---
ASSUMED CARE OF PT AT 0730. PT A&0X4, FORGETFUL AT TIMES. COMPLAINED OF A HEADACHE THIS AM-TREATED WITH PRN TYLENOL WITH PARTIAL RELIEF. TRACING SR/ST ON THE PREASSEMBLER AND INSPECTOR. ON 3L NC SAT MID 90'S. DENIES ANY SHORTNESS OF BREATH. PT UP WITH 1 ASSIST AND WALKER-WEAKNESS NOTED. URINALYSIS OBTAINED AND SENT TO LAB .REFER TO RESULTS. PT GRANDDAUGHTER HERE THIS AFTERNOON AND VOICED CONCERNS REGARDING PT DISCHARGING TO A FACILITY [place] OPPOSED TO BACK HOME DUE TO FAMILY CONFLICTS. AM ASSESSMENT CHARTED. MEDS PER MAR. CALL LIGHT WITHIN REACH. WILL CONTINUE PLAN OF CARE.
[2021-03-08 20:00] VITALS: BP 115/48
[2021-03-09 00:13] VITALS: BP 119/52
[2021-03-09 04:14] VITALS: BP 122/50
[2021-03-09 04:38] LABS: HEMATOCRIT 31.1 % (37.0-47.0); HEMOGLOBIN 10.3 gm/dL (12.0-15.0); MCH 28.3 pg (26.0-34.0); MCHC 33.2 g/dL (28.0-37.0); MCV 85.1 fL (80.0-100.0); MPV 6.9 fl. (7.2-11.1); RBC 3.66 mil/uL (4.20-5.00); RDW-CV 16.4 % (10.5-14.5); WBC 7.7 thou/uL (4.0-11.0)
[2021-03-09 04:57] LABS: CALCIUM 8.7 mg/dL (8.5-10.1); CREATININE 0.6 mg/dL (0.6-1.3); POTASSIUM 3.5 mmol/L (3.5-5.1)
--- NOTE | 2021-03-09 05:18 | NUR ---
PATIENT SLEPT PART OF THE NIGHT. PATIENT HAS BEEN PLEASANTLY CONFUSED AND FORGETFUL MOST OF THE NIGHT. IV REMAINS SALINE LOCKED. OXYGEN REMAINS AT 3L PER NC. LUNGS REMAIN WHEEZY BUT IMPROVED WITH BREATHING TREATMENTS. WILL CONTINUE TO MONITOR.
[2021-03-09 07:27] VITALS: BP 135/48
[2021-03-09 10:42] VITALS: BP 135/48
[2021-03-09 12:00] VITALS: BP 154/54
[2021-03-09 16:00] VITALS: BP 149/62
--- NOTE | 2021-03-09 18:51 | NUR ---
DISCHARGE ORDERS RECEIVED. DISCHARGE INSTRUCTIONS, CARE NOTES AND FOLLOW UP APPTS GIVEN TO PT. PT AND PT SON COMMUNICATES UNDERSTANDING OF DISCHARGE TEACHING. IV AND FIELD HORTICULTURAL SPECIALTY GROWER REMOVED. PT DISCHARGED WITH ALL BELONGINGS AND PAPERWORK VIA WHEELCHAIR WITH NURSING STAFF TO SON OWN PERSONAL VEHICLE.
--- NOTE | 2021-03-11 11:44 | EKG ---
[place] [address] ELECTROCARDIOGRAM REPORT Name: JOSEKENDRA Blankenship Room: [address] IN [facility]#: [id number] Admission: 03/08/21 Attend Phys: Chandrakant Zendejas, Discharge: 03/09/21 Date of : 48 Date of Service: 03/07/212230 Report #: [id number] THIS REPORT FOR: //name// [facility] ED Test Date: 2021-03-07 Test Time: 22:31:15 Pat Name: KENDRA GARCIA Department: Room: [address] Gender: F Leather Splitter: LIV : 1950 Requested By: Roslyn Parker Order Number: [id number] MD: Rai Kelley Measurements Intervals [place] Rate: 102 P: 82 [place]: 132 QRS: 45 QRSD: 92 T: 53 QT: 341 QTc: 445 Interpretive Statements Sinus tachycardia Low voltage, precordial leads Compared to ECG 02/09/2021 11:24:47 Low QRS voltage now present Sinus rhythm no longer present Electronically Signed On 03-11-2021 11:43:50 CDT by Rai Kelley [email or web address] <ELECTRONICALLY SIGNED> By: Rai Kelley MD, FACC 03/11/21 1143 30 30 Rai Kelley MD, FAC /EPI
== END 2021-03-09 18:54 | disposition home or self-care (01) | DRG 191 ==
LOC: M.ERS 22:14 → M.TBA-ER 03-08 00:55 → M.2W 03-08 00:55
PROVIDERS: Family Medicine; Personal Emergency Response Attendant; ADMIT Internal Medicine; ATTEND Internal Medicine
DX: J44.1 Chronic obstructive pulmonary disease with (acute) exacerbation (principal); J96.10 Chronic respiratory failure, unspecified whether with hypoxia or hypercapnia; D64.9 Anemia, unspecified; G47.33 Obstructive sleep apnea (adult) (pediatric); F41.9 Anxiety disorder, unspecified; H10.9 Unspecified conjunctivitis; Z20.822 Contact with and (suspected) exposure to COVID-19; Z91.14 Patient's other noncompliance with medication regimen; I25.2 Old myocardial infarction; Z99.81 Dependence on supplemental oxygen; Z91.19 Patient's noncompliance with other medical treatment and regimen; Z79.899 Other long term (current) drug therapy; Z79.82 Long term (current) use of aspirin; Z79.02 Long term (current) use of antithrombotics/antiplatelets; Z87.440 Personal history of urinary (tract) infections; Z86.19 Personal history of other infectious and parasitic diseases; Z87.81 Personal history of (healed) traumatic fracture; Z88.8 Allergy status to other drugs, medicaments and biological substances; Z87.891 Personal history of nicotine dependence

== ENCOUNTER 2021-04-18 10:01 | Emergency (ER) | payer MEDICARE ==
[~2021-04-18] VITALS: Ht 144.8 cm; Wt 72.6 kg
[2021-04-18] MEDS ORDERED: DEPAKOTE125 MG PO (10:05)
[2021-04-18] MEDS ORDERED: LEXAPRO 10 MG T10 M1 PO (10:05)
[2021-04-18 10:47] LABS: ABSOLUTE BASOPHILS 0.1 thou/uL (0.0-0.2); ABSOLUTE LYMPHOCYTES 0.9 thou/uL (0.8-5.3); ABSOLUTE MONOCYTES 0.7 thou/uL (0.0-1.2); ABSOLUTE NEUTROPHILS 9.4 thou/uL (1.6-8.1); BASOPHILS 0.6 %; EOSINOPHILS 0.4 %; HEMATOCRIT 32.7 % (37.0-47.0); HEMOGLOBIN 10.5 gm/dL (12.0-15.0); LYMPHOCYTES 7.8 %; MCH 27.4 pg (26.0-34.0); MCV 85.7 fL (80.0-100.0); MONOCYTES 6.4 %; MPV 7.2 fl. (7.2-11.1); NUCLEATED RBCS 0 /100WBC; PLATELET COUNT* 245 thou/uL (150-400); POLYS 84.8 %; RBC 3.82 mil/uL (4.20-5.00); RDW-CV 14.7 % (10.5-14.5); WBC 11.1 thou/uL (4.0-11.0)
[2021-04-18 10:51] LABS: CALCIUM 8.2 mg/dL (8.5-10.1); CREATININE 0.6 mg/dL (0.6-1.3); POTASSIUM 4.1 mmol/L (3.5-5.1)
[2021-04-18 10:56] LABS: ALBUMIN 3.3 g/dL (3.4-5.0); TOTAL BILIRUBIN 0.5 mg/dL (<0.1-1.0); TOTAL PROTEIN 6.4 g/dL (6.4-8.2)
--- NOTE | 2021-04-18 11:25 | EKG ---
[place] [address] ELECTROCARDIOGRAM REPORT Name: KENDRA GARCIA Room: [facility]#: [id number] Admission: 04/18/21 Attend Phys: Discharge: Date of : 48 Date of Service: 04/18/21 1020 Report #: [id number] THIS REPORT FOR: //name// [facility] ED Test Date: 2021-04-18 Test Time: 10:20:30 Pat Name: KENDRA GARCIA Department: Room: Gender: F Director Operations: : 1950 Requested By: Patricio Vera Order Number: [id number] MD: Jeet Solis Measurements Intervals [place] Rate: 90 P: 71 NC: 126 QRS: 48 QRSD: 85 T: 138 QT: 402 QTc: 492 Interpretive Statements Sinus rhythm Probable left atrial enlargement Abnrm T, consider ischemia, anterolateral lds Compared to ECG 03/07/2021 22:31:15 Possible ischemia now present Sinus tachycardia no longer present Electronically Signed On 04-18-2021 11:25:22 CDT by Jeet Solis [email or web address] <ELECTRONICALLY SIGNED> By: Jeet Solis MD, FACC 04/18/21 1125 1020 1020 Jeet Solis MD, [facility] /EPI
[2021-04-18 11:49] VITALS: BP 108/56
== END 2021-04-18 12:36 ==
LOC: M.ERS 10:01
PROVIDERS: Physician Assistant
DX: R06.00 Dyspnea, unspecified (principal); J44.9 Chronic obstructive pulmonary disease, unspecified; F41.9 Anxiety disorder, unspecified; Z98.51 Tubal ligation status; Z90.89 Acquired absence of other organs; I25.2 Old myocardial infarction; Z79.899 Other long term (current) drug therapy; Z79.82 Long term (current) use of aspirin; Z88.8 Allergy status to other drugs, medicaments and biological substances; Z87.891 Personal history of nicotine dependence

== ENCOUNTER 2021-04-20 05:25 | Inpatient (IN) | payer MEDICARE ==
[~2021-04-20] VITALS: Ht 147.3 cm; Wt 68.5 kg
[~2021-04-20 05:25] MED LIST changes: +DEPAKOTE125 MG PO; +LEXAPRO 10 MG T10 M1 PO
[2021-04-20 05:27] VITALS: BP 176/69
[2021-04-20 06:59] LABS: ABSOLUTE BASOPHILS 0.1 thou/uL (0.0-0.2); ABSOLUTE EOSINOPHILS 0.1 thou/uL (0.0-0.7); ABSOLUTE LYMPHOCYTES 1.1 thou/uL (0.8-5.3); ABSOLUTE MONOCYTES 0.6 thou/uL (0.0-1.2); ABSOLUTE NEUTROPHILS 6.1 thou/uL (1.6-8.1); EOSINOPHILS 1.8 %; HEMATOCRIT 30.4 % (37.0-47.0); LYMPHOCYTES 13.5 %; MCH 27.9 pg (26.0-34.0); MCHC 32.7 g/dL (28.0-37.0); MCV 85.4 fL (80.0-100.0); MONOCYTES 7.7 %; MPV 6.9 fl. (7.2-11.1); NUCLEATED RBCS 0 /100WBC; PLATELET COUNT* 209 thou/uL (150-400); RBC 3.57 mil/uL (4.20-5.00); RDW-CV 14.3 % (10.5-14.5)
[2021-04-20 07:15] LABS: CREATININE 0.5 mg/dL (0.6-1.3); POTASSIUM 3.7 mmol/L (3.5-5.1)
[2021-04-20 07:26] LABS: ALBUMIN 3.2 g/dL (3.4-5.0); MAGNESIUM 1.8 mg/dL (1.8-2.4); TOTAL BILIRUBIN 0.5 mg/dL (<0.1-1.0); TOTAL PROTEIN 6.1 g/dL (6.4-8.2)
--- NOTE | 2021-04-20 12:13 | EKG ---
[place] [address] ELECTROCARDIOGRAM REPORT Name: KENDRA GARCIA Room: [place] [address] ADM IN [facility]#: [id number] Admission: 04/20/21 Attend Phys: Chandrakant Zendejas, Discharge: Date of : 48 Date of Service: 04/20/21 0604 Report #: [id number] THIS REPORT FOR: //name// [facility] ED Test Date: 2021-04-20 Test Time: 06:04:09 Pat Name: KENDRA GARCIA Department: Room: [facility] Gender: F Utility Engineer: [place] : 1950 Requested By: Basilia Gonzales Order Number: [id number] MD: Rai Kelley Measurements Intervals [place] Rate: 70 P: 69 [place]: 139 QRS: 41 QRSD: 97 T: 142 QT: 449 QTc: 485 Interpretive Statements Sinus rhythm Atrial premature complex Abnrm T, consider ischemia, anterolateral lds Compared to ECG 04/18/2021 10:20:30 Atrial premature complex(es) now present Possible ischemia still present Electronically Signed On 04-20-2021 12:13:04 CDT by Rai Kelley [email or web address] <ELECTRONICALLY SIGNED> By: Rai Kelley MD, FACC 04/20/21 1213 0604 Rai Kelley MD, FACC /EPI
[2021-04-20 14:00] VITALS: BP 146/56
[2021-04-20 17:25] LABS: URINE BILIRUBIN NEGATIVE (Negative); URINE BLOOD TRACE (Negative); URINE CLARITY CLEAR; URINE COLOR YELLOW; URINE GLUCOSE-RANDOM NEGATIVE (Negative); URINE KETONES NEGATIVE (Negative); URINE LEUKOCYTES-REFLEX NEGATIVE (Negative); URINE PROTEIN NEGATIVE (Negative); URINE SPECIFIC GRAVITY 1.015 (1.005-1.030); URINE UROBILINOGEN 0.2 E.U./dl (0.2-1.0)
[2021-04-20 17:28] LABS: URINE NITRITE-REFLEX POSITIVE (Negative)
[2021-04-20 17:32] LABS: CASTS None Seen /LPF (None Seen); CRYSTALS None Seen /LPF (None Seen); SQUAMOUS 4-10 Moderate /LPF (0-3); URINE RBC None Seen /HPF (0-2); URINE WBC-REFLEX 0-5 Rare /HPF (0-5)
[2021-04-20 18:00] VITALS: BP 139/58
[2021-04-20 20:20] VITALS: BP 139/58
[2021-04-20 20:49] VITALS: BP 145/61
[2021-04-21] VITALS: BP 146/63
[2021-04-21 04:00] VITALS: BP 140/63
[2021-04-21] MEDS ORDERED: BUSPIRONE HCL10 MG PO (04:57)
--- NOTE | 2021-04-21 05:09 | NUR ---
PT ADMITTED TO ROOM 224 DURING THIS SHIFT; VSS, A+OX3, CONFUSED AND FORGETFUL, 2LO2 NC, FALL RISK-BED ALARM ON, PUREWICK IN PLACE. CURRENT PAIN MEDICATION REGIMEN HAS BEEN ADEQUATE FOR CONTROLLING HER PAIN UP TO THIS TIME. PT HAS "BLACK EYE" FROM FALL AT [place]; PIC TAKEN AND PLACED ON CHART. LIKELY ECHO TODAY.
[2021-04-21 05:24] LABS: ABSOLUTE LYMPHOCYTES 0.5 thou/uL (0.8-5.3); ABSOLUTE MONOCYTES 0.2 thou/uL (0.0-1.2); BASOPHILS 0.1 %; HEMATOCRIT 31.2 % (37.0-47.0); HEMOGLOBIN 10.1 gm/dL (12.0-15.0); LYMPHOCYTES 10.2 %; MCH 27.6 pg (26.0-34.0); MCHC 32.3 g/dL (28.0-37.0); MCV 85.3 fL (80.0-100.0); MONOCYTES 4.6 %; MPV 7.4 fl. (7.2-11.1); NUCLEATED RBCS 0 /100WBC; PLATELET COUNT* 249 thou/uL (150-400); POLYS 85.1 %; RBC 3.66 mil/uL (4.20-5.00); RDW-CV 14.5 % (10.5-14.5); WBC 4.7 thou/uL (4.0-11.0)
[2021-04-21 06:01] LABS: CALCIUM 8.6 mg/dL (8.5-10.1); CREATININE 0.6 mg/dL (0.6-1.3); POTASSIUM 3.6 mmol/L (3.5-5.1)
--- NOTE | 2021-04-21 07:05 | NUR ---
CHANGE OF SHIFT REPORT ROSIBEL PATIENT SEEN AT BEDSIDE, IN BED RESTING ASSUMED PATIENT CARE
[2021-04-21 08:00] VITALS: BP 137/61
[2021-04-21 11:41] VITALS: BP 127/50
--- NOTE | 2021-04-21 14:16 | NUR ---
Nutrition: Pt admitted with fall, facial trauma. H/o COPD. Wt in January was 164#, currently 151# - mild wt loss. 2gm Na diet. BG 150s, albumin 3.2. Meds reviewed. GOALS: >75% of meals consumed, no further wt loss from 151#. Consider mild nutrition risk at this time.
--- NOTE | 2021-04-21 16:24 | 2DMMODE ---
[place] [address] 2 D/M-MODE ECHOCARDIOGRAM Name: KENDRA GARCIA Krzysztof Room: [address] IN [facility]#: [id number] Admission: 04/20/21 Attend Phys: Chandrakant Zendejas, Discharge: Date of : 48 Date of Service: 04/21/21 1624 Report #: [id number] THIS REPORT FOR: cc: Mohini Joshi Michelle RNP [place], Michael J. MD [facility] ~ APPROVED REPORT Study performed: 04/21/2021 11:16:07 EXAM: Comprehensive 2D, Doppler, and color-flow Echocardiogram Patient Location: In-Patient Room #: [facility] Status: routine BSA: 1.68 HR: 100 bpm BP: 137/61 mmHg Rhythm: NSR Other Information Study Quality: Good Indications Congestive Heart Failure 2D Dimensions IVSd: 9.63 (7-11mm) LVOT Diam: 19.00 (18-24mm) LVDd: 42.18 mm PWd: 8.73 (7-11mm) Ascending Ao: 25.04 (22-36mm) LVDs: 26.29 (25-40mm) Aortic Root: 25.91 mm Volumes Left Atrial Volume (Systole) LA ESV Index: 22.60 mL/m2 Aortic Valve AoV Peak Nolan.: 2.19 m/s AO Peak Gr.: 19.25 mmHg LVOT Max P.04 mmHg AO Mean Gr.: 10.50 mmHg LVOT Mean P.09 mmHg LVOT Max V: 1.23 m/s AO V2 VTI: 41.19 cm LVOT Mean V: 0.81 m/s SHANITA (VTI): 1.84 cm2 LVOT V1 VTI: 26.77 [place] [address] 2 D/M-MODE ECHOCARDIOGRAM Name: KENDRA GARCIA Room: [address]#: [id number] Admission: 04/20/21 Attend Phys: Chandrakant Zendejas, Discharge: Date of : 48 Date of Service: 04/21/21 1624 Report #: [id number] Mitral Valve E/A Ratio: 0.80 MV Decel. Time: 252.78 ms MV E Max Nolan.: 1.14 m/s MV PHT: 73.31 ms MVA (PHT): 3.00 cm2 TDI E/Lateral E': 16.29 E/Medial E': 14.25 Medial E' Nolan.: 0.08 m/s Lateral E' Nolan.: 0.07 m/s Pulmonary Valve PV Peak Nolan.: 1.11 m/s PV Peak Gr.: 4.95 mmHg Left Ventricle The left ventricle is normal size. There is normal LV segmental wall motion. There is normal left ventricular wall thickness. Left ventricular systolic function is normal. LVEF is 65-70%. Grade I - abnormal relaxation pattern. Right Ventricle The right ventricle is normal size. The right ventricular systolic function is normal. Atria The left atrium size is normal. The right atrium size is normal. Aortic Valve Mild aortic valve sclerosis. No aortic regurgitation is present. Mild aortic stenosis. Mitral Valve The mitral valve is normal in structure. There is no mitral valve regurgitation noted. No evidence of mitral valve stenosis. Tricuspid Valve The tricuspid valve is normal in structure. Trace tricuspid regurgitation. Unable to assess PA pressure. Pulmonic Valve The pulmonary valve is normal in structure. There is no pulmonic valvular regurgitation[place] [address] 2 D/M-MODE ECHOCARDIOGRAM Name: KENDRA GARCIA Krzysztof Room: [address]#: [id number] Admission: 04/20/21 Attend Phys: Chandrakant Zendejas, Discharge: Date of : 48 Date of Service: 04/21/21 1624 Report #: [id number] The aortic root is normal in size. IVC is normal in size and collapses >50% with inspiration. Pericardium There is no pericardial effusion. <Conclusion> The left ventricle is normal size. There is normal left ventricular wall thickness. Left ventricular systolic function is normal. LVEF is 65-70%. Grade I - abnormal relaxation pattern. There is normal LV segmental wall motion. Mild aortic valve sclerosis. Mild aortic stenosis. Trace tricuspid regurgitation. IVC is normal in size and collapses >50% with inspiration. <ELECTRONICALLY SIGNED> By: Rai Kelley MD, FACC 04/21/21 1624 1624 1624 Rai Kelley MD, FACC /INF
[2021-04-21 17:09] VITALS: BP 142/72
[2021-04-21 20:00] VITALS: BP 116/68
--- NOTE | 2021-04-21 20:00 | NUR ---
RECEIVED REPORT AND ASSUMED CARE OF PT, ASSESSMENT COMPLETED. PRABHAKAR EYES BRUISED WITH RT EYE SWOLLEN CLOSED. HOB ELEVATED. PUREWICK IN PLACE AND EFFECTIVE. TELEMETRY ON SHOWING SR. WILL CONT TO MONITOR AND ASSIST NEEDED.
[2021-04-22] VITALS: BP 122/73
[2021-04-22 04:00] VITALS: BP 138/59
--- NOTE | 2021-04-22 06:51 | NUR ---
SLEPT WELL TONIGHT. ASSISTED WITH REPOSITIONING. TELEMETRY CONT TO SHOW SR. NO COMPLAINTS VOICED. HS GOALS OF REST AND SAFETY ACHIEVED.
[2021-04-22 07:50] VITALS: BP 150/68
--- NOTE | 2021-04-22 09:28 | NUR ---
ASSUMED CARE OF PT AT 0730. PT SITTING UP IN BED WAITING FOR BREAKFAST. A&0X4, DENIES ANY PAIN OR SHORTNESS OF BREATH AT THIS TIME. TRACING SR ON THE FLAT SORTING MACHINE CLERK. ON 2L NC SAT UPPER 90'S. PT UP WITH 1 ASSIST-WEAKNESS NOTED. BHAVNA ORBITAL SWELLING AND BRUISING NOTED R>L. PT REQUIRES SET UP WITH MEALS. PT GOAL FOR TODAY IS INCREASE ACTIVITY AND DIURESIS. AM ASSESSMENT CHARTED. MEDICATIONS PER AUG. PT REPOSITIONED EVERY 2 HOURS FOR COMFORT. HOURLY ROUNDING OBSERVED. BED IN LOW POSITION. BED ALARM IN PLACE. FALL PRECAUTIONS IN PLACE. CALL LIGHT WITHIN REACH. WILL CONTINUE PLAN OF CARE.
[2021-04-22 11:00] VITALS: BP 148/53
--- NOTE | 2021-04-22 12:43 | NUR ---
CM ASSESSMENT: REVIEW OF PT'S CHART INFORMS THAT THE PT CURRENTLY RESIDES AT [facility]. CM SPOKE TO ADMISSIONS AT [facility] AND THEY CONFIRM THIS, AND THEY WILL ACCEPT THE PT AT D/C. CM WILL REMAIN AVAILABLE TO ASSIST AND FOLLOW NEEDED. [facility] PHONE: [phone] FAX: [phone]
[2021-04-22 17:25] VITALS: BP 166/71
[2021-04-22 21:09] VITALS: BP 154/70
[2021-04-23 00:58] VITALS: BP 167/71
--- NOTE | 2021-04-23 05:15 | NUR ---
PT IS ABLE TO COMMUNICATE HER NEEDS TO STAFF WITH MINOR DIFFICULTY; SHE IS A LITTLE [id number] AND IS FORGETFUL. SHE HAS DENIED THE NEED FOR PAIN MEDICATION UP TO THIS TIME. POSSIBLE DISCHARGE TODAY.
[2021-04-23 05:22] VITALS: BP 135/57
[2021-04-23 08:00] VITALS: BP 159/66
[2021-04-23 12:00] VITALS: BP 138/55
[2021-04-23] MEDS ORDERED: CEFDINIR300 MG PO (12:14)
--- NOTE | 2021-04-23 15:03 | NUR ---
PHYSICIAN INFORMS OF PLAN FOR THE PT TO D/C TODAY BACK TO [facility]. THE PT RESIDES IN LTC WITHIN THE FACILITY. TRANSPORATION ARRANGED BY W/C IDALIA WITH RN TO CALL REPORT. CM WILL REMAIN AVAILABLE TO ASSIST AND FOLLOW NEEDED. MAYA PHONE: [phone]
--- NOTE | 2021-04-23 17:38 | NUR ---
DISCHARGE ORDERS RECEIVED. DISCHARGE INSTRUCTIONS, CARE NOTES, E SCRIPTS AND FOLLOW UP APPTS COPIED AND PLACED IN FOLDER FOR TRANSPORT. IV AND DIALYSIS NURSE REMOVED. PT DISCHARGED WITH ALL BELONGINGS AND PAPERWORK VIA WHEELCHAIR VAN SERVICE. GRANDDAUGHTER/DPOA MARGARET CALLED AND UPDATED ON DISCHARGE.
== END 2021-04-23 17:40 | DRG 291 ==
LOC: M.ERS 05:25 → M.TBA-ER 09:40 → M.2W 09:40
PROVIDERS: Emergency Medicine; ADMIT Internal Medicine; ATTEND Internal Medicine
DX: I50.31 Acute diastolic (congestive) heart failure (principal); J96.21 Acute and chronic respiratory failure with hypoxia; J44.1 Chronic obstructive pulmonary disease with (acute) exacerbation; Z20.822 Contact with and (suspected) exposure to COVID-19; H05.231 Hemorrhage of right orbit; R54 Age-related physical debility; G47.33 Obstructive sleep apnea (adult) (pediatric); D64.9 Anemia, unspecified; F32.9 Major depressive disorder, single episode, unspecified; M19.90 Unspecified osteoarthritis, unspecified site; S20.211A Contusion of right front wall of thorax, initial encounter; S29.9XXA Unspecified injury of thorax, initial encounter; S09.90XA Unspecified injury of head, initial encounter; J44.9 Chronic obstructive pulmonary disease, unspecified; F41.9 Anxiety disorder, unspecified; Z87.81 Personal history of (healed) traumatic fracture; I25.2 Old myocardial infarction; Z87.891 Personal history of nicotine dependence; W18.39XA Other fall on same level, initial encounter; Y93.89 Activity, other specified; Y92.89 Other specified places as the place of occurrence of the external cause; Y99.8 Other external cause status; Z91.19 Patient's noncompliance with other medical treatment and regimen; Z28.21 Immunization not carried out because of patient refusal

== ENCOUNTER 2021-05-12 23:01 | Inpatient (IN) | payer MEDICARE ==
[~2021-05-12] VITALS: Ht 152.4 cm; Wt 69.5 kg
[~2021-05-12 23:01] MED LIST changes: +BUSPIRONE HCL10 MG PO
[2021-05-12 23:04] VITALS: BP 193/109
[2021-05-12 23:55] LABS: ABSOLUTE BASOPHILS 0.1 thou/uL (0.0-0.2); ABSOLUTE EOSINOPHILS 0.6 thou/uL (0.0-0.7); ABSOLUTE LYMPHOCYTES 4.8 thou/uL (0.8-5.3); ABSOLUTE MONOCYTES 1.1 thou/uL (0.0-1.2); ABSOLUTE NEUTROPHILS 9.2 thou/uL (1.6-8.1); BASOPHILS 0.9 %; EOSINOPHILS 3.6 %; HEMATOCRIT 36.6 % (37.0-47.0); HEMOGLOBIN 11.7 gm/dL (12.0-15.0); LYMPHOCYTES 30.5 %; MCH 27.9 pg (26.0-34.0); MCHC 31.9 g/dL (28.0-37.0); MCV 87.6 fL (80.0-100.0); MONOCYTES 6.8 %; MPV 7.1 fl. (7.2-11.1); NUCLEATED RBCS 0 /100WBC; PLATELET COUNT* 363 thou/uL (150-400); POLYS 58.2 %; RBC 4.18 mil/uL (4.20-5.00); RDW-CV 15.5 % (10.5-14.5); WBC 15.8 thou/uL (4.0-11.0)
[2021-05-13 00:12] LABS: CALCIUM 8.3 mg/dL (8.5-10.1); CREATININE 0.7 mg/dL (0.6-1.3); POTASSIUM 4.7 mmol/L (3.5-5.1)
[2021-05-13 00:16] LABS: ALBUMIN 3.4 g/dL (3.4-5.0); TOTAL BILIRUBIN 0.3 mg/dL (<0.1-1.0); TOTAL PROTEIN 7.1 g/dL (6.4-8.2)
[2021-05-13 01:37] LABS: PO2 93.9 mmHg (75.0-100.0)
[2021-05-13 01:39] LABS: PCO2 81.7 mmHg (35.0-45.0); pH 7.147 (7.340-7.450)
[2021-05-13 03:10] VITALS: BP 104/60
[2021-05-13 03:30] VITALS: BP 111/44
[2021-05-13 08:19] VITALS: BP 93/42
--- NOTE | 2021-05-13 09:32 | EKG ---
[place] [address] ELECTROCARDIOGRAM REPORT Name: KENDRA GARCIA Room: [address] ADM IN ..#: [id number] Admission: 05/13/21 Attend Phys: Yolanda Matthews Discharge: Date of : 48 Date of Service: 05/12/21 2304 Report #: [id number] THIS REPORT FOR: //name// [facility] ED Test Date: 2021-05-12 Test Time: 23:04:22 Pat Name: KENDRA GARCIA Department: Room: [facility] Gender: F Creche Attendant: LU : 1950 Requested By: Roslyn Parker Order Number: [id number] MD: Jeet Solis Measurements Intervals [place] Rate: 120 P: 69 [place]: 160 QRS: 40 QRSD: 79 T: 60 QT: 318 QTc: 450 Interpretive Statements Sinus tachycardia Probable left atrial enlargement Baseline wander in lead(s) V2 Compared to ECG 04/20/2021 06:04:09 Sinus rhythm no longer present Atrial premature complex(es) no longer present Possible ischemia no longer present Electronically Signed On 05-13-2021 9:32:39 RN RELIEF CHARGE by Jeet Solis [email or web address] <ELECTRONICALLY SIGNED> By: Jeet Solis MD, FACC 05/13/21 0932 03 03 Jeet Solis MD, [facility] /EPI
[2021-05-13 12:00] VITALS: BP 106/49
[2021-05-13 12:20] LABS: BE -1.8 mmol/L (-2 to +3); PCO2 43.2 mmHg (35.0-45.0); PO2 114.8 mmHg (75.0-100.0); pH 7.357 (7.340-7.450)
[2021-05-13 16:00] VITALS: BP 123/47
[2021-05-13 20:30] VITALS: BP 134/67
[2021-05-14 00:24] VITALS: BP 157/64
[2021-05-14 05:27] LABS: HEMATOCRIT 26.4 % (37.0-47.0); MCH 28.3 pg (26.0-34.0); MCV 85.8 fL (80.0-100.0); MPV 7.3 fl. (7.2-11.1); RBC 3.08 mil/uL (4.20-5.00); RDW-CV 14.8 % (10.5-14.5); WBC 2.5 thou/uL (4.0-11.0)
[2021-05-14 05:35] LABS: ALBUMIN 3.1 g/dL (3.4-5.0); CALCIUM 8.2 mg/dL (8.5-10.1); CREATININE 0.5 mg/dL (0.6-1.3); MAGNESIUM 1.9 mg/dL (1.8-2.4); POTASSIUM 3.8 mmol/L (3.5-5.1); TOTAL BILIRUBIN 0.4 mg/dL (<0.1-1.0); TOTAL PROTEIN 6.2 g/dL (6.4-8.2)
[2021-05-14 05:44] LABS: HEMOGLOBIN 8.7 gm/dL (12.0-15.0)
[2021-05-14 07:55] VITALS: BP 147/66
[2021-05-14 12:30] VITALS: BP 153/78
[2021-05-14 17:52] VITALS: BP 148/81
[2021-05-14 17:55] LABS: URINE BILIRUBIN NEGATIVE (Negative); URINE BLOOD NEGATIVE (Negative); URINE CLARITY CLEAR; URINE COLOR YELLOW; URINE GLUCOSE-RANDOM NEGATIVE (Negative); URINE KETONES NEGATIVE (Negative); URINE LEUKOCYTES-REFLEX NEGATIVE (Negative); URINE NITRITE-REFLEX NEGATIVE (Negative); URINE PROTEIN NEGATIVE (Negative); URINE UROBILINOGEN 0.2 E.U./dl (0.2-1.0)
[2021-05-14 20:00] VITALS: BP 138/54
[2021-05-15 00:29] VITALS: BP 157/74
[2021-05-15 05:16] LABS: ABSOLUTE LYMPHOCYTES 0.4 thou/uL (0.8-5.3); ABSOLUTE MONOCYTES 0.2 thou/uL (0.0-1.2); BASOPHILS 0.1 %; HEMATOCRIT 25.5 % (37.0-47.0); HEMOGLOBIN 8.3 gm/dL (12.0-15.0); LYMPHOCYTES 10.8 %; MCH 27.9 pg (26.0-34.0); MCHC 32.4 g/dL (28.0-37.0); MCV 85.9 fL (80.0-100.0); MONOCYTES 5.5 %; MPV 7.6 fl. (7.2-11.1); NUCLEATED RBCS 0 /100WBC; PLATELET COUNT* 226 thou/uL (150-400); POLYS 83.6 %; RBC 2.97 mil/uL (4.20-5.00); RDW-CV 14.9 % (10.5-14.5); WBC 3.6 thou/uL (4.0-11.0)
[2021-05-15 05:27] VITALS: BP 161/77
[2021-05-15 05:29] LABS: ALBUMIN 3.1 g/dL (3.4-5.0); CALCIUM 8.2 mg/dL (8.5-10.1); CREATININE 0.5 mg/dL (0.6-1.3); MAGNESIUM 2.2 mg/dL (1.8-2.4); POTASSIUM 3.4 mmol/L (3.5-5.1); TOTAL BILIRUBIN 0.4 mg/dL (<0.1-1.0); TOTAL PROTEIN 6.1 g/dL (6.4-8.2)
[2021-05-15 05:31] LABS: APTT 24.5 Seconds (25.0-31.3); INR 1.1; PROTIME 11.3 Seconds (9.20-11.50)
[2021-05-15 07:41] VITALS: BP 156/56
[2021-05-15 12:00] VITALS: BP 183/71
[2021-05-15 16:00] VITALS: BP 170/68
[2021-05-15 16:22] LABS: BE 2.1 mmol/L (-2 to +3); pH 7.365 (7.340-7.450)
[2021-05-16] VITALS (7 sets, daily range): BP systolic 111–192; BP diastolic 67–90
[2021-05-16 09:19] LABS: ABSOLUTE LYMPHOCYTES 0.4 thou/uL (0.8-5.3); ABSOLUTE MONOCYTES 0.4 thou/uL (0.0-1.2); ABSOLUTE NEUTROPHILS 3.8 thou/uL (1.6-8.1); BASOPHILS 0.1 %; HEMATOCRIT 27.3 % (37.0-47.0); LYMPHOCYTES 8.4 %; MCH 28.4 pg (26.0-34.0); MCHC 32.9 g/dL (28.0-37.0); MCV 86.1 fL (80.0-100.0); MONOCYTES 8.4 %; MPV 7.6 fl. (7.2-11.1); NUCLEATED RBCS 0 /100WBC; PLATELET COUNT* 226 thou/uL (150-400); POLYS 83.1 %; RBC 3.17 mil/uL (4.20-5.00); RDW-CV 14.8 % (10.5-14.5); WBC 4.6 thou/uL (4.0-11.0)
[2021-05-16 09:35] LABS: ALBUMIN 3.2 g/dL (3.4-5.0); CALCIUM 8.4 mg/dL (8.5-10.1); CREATININE 0.5 mg/dL (0.6-1.3); MAGNESIUM 2.2 mg/dL (1.8-2.4); POTASSIUM 4.2 mmol/L (3.5-5.1); TOTAL BILIRUBIN 0.5 mg/dL (<0.1-1.0); TOTAL PROTEIN 6.2 g/dL (6.4-8.2)
[2021-05-17] VITALS (7 sets, daily range): BP systolic 124–185; BP diastolic 54–76
[2021-05-17 04:39] LABS: ABSOLUTE LYMPHOCYTES 0.3 thou/uL (0.8-5.3); ABSOLUTE MONOCYTES 0.1 thou/uL (0.0-1.2); ABSOLUTE NEUTROPHILS 1.8 thou/uL (1.6-8.1); BASOPHILS 0.3 %; EOSINOPHILS 0.2 %; HEMATOCRIT 26.4 % (37.0-47.0); HEMOGLOBIN 8.6 gm/dL (12.0-15.0); LYMPHOCYTES 12.3 %; MCH 27.9 pg (26.0-34.0); MCHC 32.7 g/dL (28.0-37.0); MCV 85.3 fL (80.0-100.0); MONOCYTES 6.5 %; MPV 7.4 fl. (7.2-11.1); NUCLEATED RBCS 0 /100WBC; PLATELET COUNT* 214 thou/uL (150-400); POLYS 80.7 %; RDW-CV 14.7 % (10.5-14.5); WBC 2.2 thou/uL (4.0-11.0)
[2021-05-17 04:46] LABS: CREATININE 0.5 mg/dL (0.6-1.3); POTASSIUM 3.8 mmol/L (3.5-5.1)
[2021-05-18] VITALS: BP 171/66
[2021-05-18 01:06] VITALS: BP 138/61
[2021-05-18 04:00] VITALS: BP 121/70
[2021-05-18 07:59] VITALS: BP 160/66
[2021-05-18] MEDS ORDERED: PREDNISONE 10 M10 MG PO (09:49)
[2021-05-18] MEDS ORDERED: HYDROCODON-ACE1 EAC7 PO (09:49)
[2021-05-18] MEDS ORDERED: LEVOFLOXACIN500 MG PO (09:49)
[2021-05-18 11:39] LABS: ABSOLUTE LYMPHOCYTES 0.2 thou/uL (0.8-5.3); ABSOLUTE MONOCYTES 0.3 thou/uL (0.0-1.2); ABSOLUTE NEUTROPHILS 5.3 thou/uL (1.6-8.1); BASOPHILS 0.1 %; HEMOGLOBIN 10.1 gm/dL (12.0-15.0); LYMPHOCYTES 3.8 %; WBC 5.8 thou/uL (4.0-11.0)
[2021-05-18 11:41] LABS: HEMATOCRIT 31.3 % (37.0-47.0); MCH 27.5 pg (26.0-34.0); MCHC 32.3 g/dL (28.0-37.0); MONOCYTES 5.5 %; MPV 7.3 fl. (7.2-11.1); NUCLEATED RBCS 0 /100WBC; PLATELET COUNT* 230 thou/uL (150-400); POLYS 90.6 %; RBC 3.68 mil/uL (4.20-5.00); RDW-CV 14.5 % (10.5-14.5)
[2021-05-18 11:52] LABS: ALBUMIN 3.1 g/dL (3.4-5.0); CALCIUM 8.3 mg/dL (8.5-10.1); CREATININE 0.6 mg/dL (0.6-1.3); POTASSIUM 3.7 mmol/L (3.5-5.1); TOTAL BILIRUBIN 0.5 mg/dL (<0.1-1.0); TOTAL PROTEIN 6.1 g/dL (6.4-8.2)
[2021-05-18 12:00] VITALS: BP 147/60
[2021-05-18 16:00] VITALS: BP 166/68
[2021-05-19 00:26] VITALS: BP 186/79
[2021-05-19 05:18] VITALS: BP 165/83
[2021-05-19 08:00] VITALS: BP 195/83
[2021-05-19 12:27] VITALS: BP 165/64
[2021-05-19 13:18] LABS: HEMATOCRIT 32.7 % (37.0-47.0); HEMOGLOBIN 10.6 gm/dL (12.0-15.0); MCH 27.6 pg (26.0-34.0); MCHC 32.5 g/dL (28.0-37.0); MCV 84.9 fL (80.0-100.0); MPV 7.5 fl. (7.2-11.1); NUCLEATED RBCS 0 /100WBC; PLATELET COUNT* 236 thou/uL (150-400); RBC 3.85 mil/uL (4.20-5.00); RDW-CV 14.7 % (10.5-14.5); WBC 8.5 thou/uL (4.0-11.0)
[2021-05-19 13:27] LABS: CALCIUM 8.3 mg/dL (8.5-10.1); CREATININE 0.5 mg/dL (0.6-1.3); POTASSIUM 3.9 mmol/L (3.5-5.1)
[2021-05-19 15:07] LABS: ABSOLUTE MONOCYTES 0.3 thou/uL (0.0-1.2); ABSOLUTE NEUTROPHILS 7.1 thou/uL (1.6-8.1); PLATELET ESTIMATE ADEQUATE
--- NOTE | 2021-05-19 16:22 | CON ---
[address] [address] CONSULTATION Name: KENDRA GARCIA Room: [address] IN .R.#: [id number] Admission: 05/13/21 Attend Phys: Caleb Stinson Discharge: Date of : 48 Report #: [id number] THIS REPORT FOR: cc: Mohini Joshi Michelle RNP Pervez, Adeel MD ~ DATE OF CONSULTATION: 05/14/2021 REFERRING PHYSICIAN: Dr. Lira. INDICATIONS FOR CONSULTATION: Plhmu-kh-nlnlctg hypercarbic respiratory failure. HISTORY OF PRESENT ILLNESS: A 70-year-old female I have seen her during a previous hospitalization. She has a history of COPD as well as obstructive sleep apnea. She is on a BiPAP while asleep long-term. The patient has had limited compliance to BiPAP in the past. She also has had admissions to this hospital since I last saw her. There is a sputum culture, which was positive for Stenotrophomonas maltophilia. I do not see documentation of therapy for this. It appears the patient has had frequent falls and was recently admitted to this hospital towards the beginning of this month with a fall, is again admitted with another fall. There are some superficial injuries to her forehead and close to her right eye. It is not known to me if these are all from the previous admission or some from this presentation as well. Regardless, there is no intracranial injury. Upon initial presentation, the patient had a low pH of 7.147 and a pCO2 elevated to 82. She has been on a BiPAP. Her pH and pCO2 have normalized. The patient still, however, remains actively bronchospastic. She has also had swallow study today and she is aspirating on thin liquids and is recommended thickened liquids. So far, she was n.p.o. The patient does appear to be fairly anxious as well. She only has minimal swelling of lower extremities. There is no calf pain. The patient is limited. The patient was anxious and was limited in answering questions for review of systems REVIEW OF SYSTEMS: For 12 points is negative except as mentioned above. PAST MEDICAL HISTORY: COPD, on oxygen long-term. History of obstructive sleep apnea, is on a BiPAP long-term, has had partial compliance; non-ST myocardial infarction earlier this year with a troponin I of 2.0. Plan was to obtain an outpatient stress test at that time. Left ventricular ejection fraction on last echo is normal and right heart pressures are not elevated. Recent falls/episode of unresponsiveness as above, anxiety, tubal ligation. SOCIAL HISTORY: Extensive history of smoking, has now discontinued. No known history of heavy alcohol [place] [address] CONSULTATION Name: JOSEKENDRA Krzysztof Room: [address] IN ..#: [id number] Admission: 05/13/21 Attend Phys: Caleb Stinson Discharge: Date of : 48 Report #: [id number] ALLERGIES: She is reported to have had hallucinations with Ativan. This appears to be a side effect and not a true allergy. CURRENT MEDICATIONS: List in [facility], reviewed. HOME MEDICATIONS: List also in [facility], reviewed. FAMILY HISTORY: No pertinent family history. IMMUNIZATION HISTORY: The patient reports that she recently received one dose of Moderna COVID-19 vaccine. She is not able to state exactly when she received it. PHYSICAL EXAMINATION: GENERAL: She is very anxious. VITAL SIGNS: Pulse of 100 and blood pressure of 153/78. She was saturating 97%, was on 6 liters nasal cannula; heart rate 100; respiratory rate elevated to 23 to 24; afebrile with a temperature of 36.8. HEENT: Head is normocephalic and atraumatic. Pupils are equal and reactive. There is no throat erythema. I do not see any obvious thrush in her throat. NECK: Does not show raised JVP, asymmetry, mass, or lymph nodes. CHEST: Symmetrical expansion on inspection and palpation. On auscultation, there are loud inspiratory as well as expiratory wheezes. HEART: Regular. There is no murmur. ABDOMEN: Soft and nontender. EXTREMITIES: Lower extremities show trace edema. There is no calf tenderness. SKIN: Dry and intact. NEUROLOGIC: Moves all extremities bilaterally equally and spontaneously. There is no focal deficit identified. LABORATORY DATA: The patient's lab work, which includes a significant drop in hemoglobin today, but the patient has been on IV fluids and [employer]ch reviewed. Chemistry is also in [facility], reviewed. Elevated sodium noted. Urinalysis is pending. COVID-19 antigen negative. Arterial blood gases as described above. ASSESSMENT AND PLAN: 1. Hndow-lp-fbhkpul hypercarbic/hypoxemic respiratory failure. The patient is on a BiPAP while asleep long-term. Has previously had partial compliance. Currently is doing better with just low setting on BiPAP at 12/6. I did not make a change at this time. Could bring her home BiPAP here and use. Per records, the patient may in fact be at a long-term care facility now. The etiology of the patient's recent falls/episode of unresponsiveness is not fully defined at this time. [address] [place] [address] CONSULTATION Name: KENDRA GARCIA Room: [address]#: [id number] Admission: 05/13/21 Attend Phys: Caleb Stinson Discharge: Date of : 48 Report #: [id number] 2. Chronic obstructive pulmonary disease exacerbation. I will continue with Solu-Medrol as well as nebulized bronchodilators as currently prescribed. 3. Pulmonary infiltrates/aspiration/history of Stenotrophomonas maltophilia positive sputum culture. The patient did have a positive culture for Stenotrophomonas maltophilia earlier this year. It is not known to me. I am not aware of her being treated for this. It was sensitive to Bactrim as well as Levaquin, doxycycline. Does have activity against to this organism; however, at that time, it was not tested. I repeated a chest x-ray today. It is looking better than the previous chest x-ray; therefore, for now, I decided to continue current antibiotics and follow response. Down the line, I may consider switching antibiotics to Levaquin. More cultures and serologies are ordered. She is now on thickened liquids per Speech. Suspect that there is a component of aspiration. Recommend strict aspiration precautions. 4. Gastroesophageal reflux disease/suspected vocal cord dysfunction/possible thrush. A significant component of the patient's wheezes are from the upper airways. These would be consistent with gastroesophageal reflux. Certainly, she may have vocal cord dysfunction as well. It will be possible that she has thrush too low down to be visible on throat examination. She was ordered Protonix; however, she has not been receiving on account of earlier being n.p.o. For now, I ordered IV Protonix b.i.d. We will switch to p.o. later if she consistently is able to take orally. 5. Obstructive sleep apnea. See discussion above. 6. Episode of unresponsiveness/fall. Etiology is not fully defined at this time. May consider obtaining Neurology opinion. Also, note that she had a small non-ST myocardial infarction in an earlier admission and the plan at that time was to obtain an outpatient stress test. I would defer to the primary service as to whether a Cardiology opinion is also considered. 7. Fluid overload/hypernatremia. We would give her diuretics well at the same time also keep on giving her D5W. I did go ahead and order one dose of Lasix and Aldactone. She is also on D5W at 50. We will continue the same. If sodium rises as a result of diuresis today, then we will increase rate tomorrow. 8. Anxiety. Noted to be on p.r.n. Xanax, also on BuSpar. 9. Deep vein thrombosis prophylaxis. Considering drop in hemoglobin, I did not order subcutaneous Lovenox at this time. We will consider in a.m. if hemoglobin remains stable as drop could be dilutional. 10. Evaluation for thromboembolic phenomena. We will do a D-dimer. If elevated, then recommend obtaining venous Dopplers. 11. Clostridium difficile prophylaxis, Lactinex. Thanks for this consultation. <ELECTRONICALLY SIGNED> By: Michel Benavides MD 05/19/21 1622 1517 1907Agillian Benavides MD /nt
[2021-05-19 21:37] VITALS: BP 176/78
[2021-05-20] VITALS: BP 157/56
[2021-05-20 03:49] VITALS: BP 179/68
[2021-05-20 08:08] VITALS: BP 178/72
[2021-05-20 16:00] VITALS: BP 152/68
--- NOTE | 2021-05-21 14:11 | EKG ---
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: SSTEPHENS5 : 1950 Requested By: Cedric Chowdary Order Number: [id number] Narendra MD: Brodie Salazar Measurements Intervals [place] Rate: 102 P: 69 [place]: 103 QRS: 33 QRSD: 78 T: 71 QT: 345 QTc: 450 Interpretive Statements Sinus tachycardia Baseline wander in lead(s) II,III,aVF Compared to ECG 05/12/2021 23:04:22 No significant changes Electronically Signed On 05-21-2021 14:11:16 GENETIC PHYSICIAN by Brodie Salazar [email or web address] <ELECTRONICALLY SIGNED> By: Brodie Salazar MD, FACC 05/21/21 1411 15 15 Brodie Salazar MD, FACC /EPI
== END 2021-05-20 18:59 | disposition home or self-care (01) | DRG 177 ==
LOC: M.ERS 23:01 → M.TBA-ER 05-13 00:53 → M.2W 05-13 01:51 → M.TBA-ER 05-13 01:51 → M.2W 05-13 02:34 → M.3W 05-19 18:53
PROVIDERS: Internal Medicine; Internal Medicine Critical Care Medicine; Personal Emergency Response Attendant; ADMIT Internal Medicine; ATTEND Internal Medicine
DX: J15.6 Pneumonia due to other Gram-negative bacteria (principal); J96.22 Acute and chronic respiratory failure with hypercapnia; J96.21 Acute and chronic respiratory failure with hypoxia; J44.1 Chronic obstructive pulmonary disease with (acute) exacerbation; E87.0 Hyperosmolality and hypernatremia; J44.0 Chronic obstructive pulmonary disease with (acute) lower respiratory infection; Z20.822 Contact with and (suspected) exposure to COVID-19; F41.9 Anxiety disorder, unspecified; Z66 Do not resuscitate; G47.33 Obstructive sleep apnea (adult) (pediatric); K21.9 Gastro-esophageal reflux disease without esophagitis; E87.70 Fluid overload, unspecified; D64.9 Anemia, unspecified; R13.10 Dysphagia, unspecified; E11.65 Type 2 diabetes mellitus with hyperglycemia; B36.9 Superficial mycosis, unspecified; I25.10 Atherosclerotic heart disease of native coronary artery without angina pectoris; Z87.81 Personal history of (healed) traumatic fracture; I25.2 Old myocardial infarction; Z88.8 Allergy status to other drugs, medicaments and biological substances; Z87.891 Personal history of nicotine dependence

== ENCOUNTER 2021-06-06 09:40 | Emergency (ER) | payer MEDICARE ==
[~2021-06-06] VITALS: Ht 144.8 cm; Wt 68.0 kg
[~2021-06-06 09:40] MED LIST changes: +LEVOFLOXACIN500 MG PO
[2021-06-06 12:54] VITALS: BP 126/39
== END 2021-06-06 12:56 | disposition home or self-care (01) ==
LOC: M.ERS 09:40
DX: S00.93XA Contusion of unspecified part of head, initial encounter (principal); J44.9 Chronic obstructive pulmonary disease, unspecified; F41.9 Anxiety disorder, unspecified; Z98.51 Tubal ligation status; Z90.89 Acquired absence of other organs; Z79.899 Other long term (current) drug therapy; Z88.8 Allergy status to other drugs, medicaments and biological substances; Z87.891 Personal history of nicotine dependence; W19.XXXA Unspecified fall, initial encounter; Y93.89 Activity, other specified; Y92.89 Other specified places as the place of occurrence of the external cause; Y99.8 Other external cause status